=== PATIENT | female | born 1970 | race Caucasian/White ===

== ENCOUNTER 2020-10-27 11:51 | Inpatient (IN) | payer BC, SELFPAY ==
[2020-10-27] VITALS (21 sets, daily range): BP systolic 164–180; BP diastolic 84–93; PULSE 64–89; RESP 11–20; TEMP 36.7–37.2; O2SAT 97–100; BMI 33.2
--- NOTE | ~2020-10-27 | CT_ITS ---
EXAMINATION: CTA brain carotid EXAM DATE: 10/27/2020 13:18 INDICATION: Stroke, unable to walk. Left anterior cerebral artery distribution infarctions. TECHNIQUE: Spiral CTA of the carotid arteries was performed with intravenous injection 100 cc of Omn ipaque 350. Axial, coronal, sagittal reformatted images reviewed. Additional reformatted images crea hilaria on dedicated 3-D workstation. NASCET comparable standard used to assess the degree of arterial s tenosis. Spiral CT angiogram cerebral arteries performed with the same intravenous injection of cont rast. Source images of the brain CTA transferred to dedicated workstation for 3-D rotational image cr eation. Coronal, sagittal maximum intensity pixel images also reviewed. The dose-length product (DL P) for this examination was 1074.31 mGy-cm. The exposure was tailored according to patient size, an d iterative reconstruction (ASIR) was used as additional dose reduction technique. Correlation is mad e to noncontrast head CT earlier same date. FINDINGS: Minimal regions of carotid atherosclerosis, 0% carotid bulb stenosis bilaterally. The verte bral arteries are codominant. Mild right carotid siphon arterial sclerosis without stenosis. There is right-sided posterior communicating artery dominant posterior cerebral artery. There is approximately 6 mm length of the left A2 segment which is severely stenotic, between axial s equence 3 images 94 and 101. Uncertain whether or not this is from atherosclerosis or thrombus. Other [place] symmetric and unremarkable cerebral artery arborization. There is no carotid or vertebral basila r arterial dissection or fibromuscular dysplasia. There are no cerebral artery aneurysms. The sagitta l, transverse and sigmoid sinuses enhance normally, no venous sinus thrombosis. Internal cerebral vei ns also enhance normally. Left frontal lobe, anterior cerebral artery distribution acute or subacut e infarctions as described on noncontrast head CT prior to this. IMPRESSION: 1. Left A2 severe short segment narrowing, could be from thrombus or atherosclerosis. 2. Left IVONNE distribution infarctions. Reviewed, dictated and finalized at location A. IMPRESSION: 1. Left A2 severe short segment narrowing, could be from thrombus or atheroscl erosis. 2. Left IVONNE distribution infarctions.
--- NOTE | ~2020-10-27 | MR_ITS ---
EXAMINATION: MR brain/brain stem wo/w con DATE: 10/28/2020 10:52 INDICATION: Cerebral vascular accident. Right hemiparesis. TECHNIQUE: Magnetic resonance imaging (MRI) of the brain and brainstem was performed without and with 18 mL MultiHance intravenous contrast. Sequences included sagittal and axial T1-weighted FSE, axial diffusion-weighted FS EPI, axial T2*-weighted GRE, axial T2-weighted FLAIR Propeller, and axial T2-we ighted Propeller. Postcontrast sequences included axial and coronal T1-weighted FSE. Apparent diffusi on coefficient (ADC) maps were created. COMPARISON: Head CT 10/27/2020 FINDINGS: There are patchy acute infarcts in the medial left frontal lobe. There are scattered areas of nonspecific increased T2-weighted signal intensity in the cerebral white matter, which is within n ormal limits for the patient's age. There is no intracranial hemorrhage or abnormal mass lesion. The ventricles are normal in size. There is mucosal thickening in the paranasal sinuses. There is a trace left mastoid effusion. IMPRESSION: 1. Patchy acute infarcts in the medial left frontal lobe. Reviewed, dictated and finalized at location A.
--- NOTE | ~2020-10-27 | CT_ITS ---
EXAMINATION: CT cervical spine [facility] EXAM DATE: 10/27/2020 12:27 INDICATION: Neck pain and right sided weakness. TECHNIQUE: Spiral CT of the cervical spine was performed without contrast. Axial images were reviewe d. Coronal and sagittal reformatted images were also reviewed. The dose-length product (DLP) for thi s examination was 414.01 mGy-cm. The exposure was tailored according to patient size (auto mA exposu re control), and iterative reconstruction (ASIR) was used as additional dose reduction technique. [facility] is no prior study for comparison. FINDINGS: There are no acute fractures identified. The odontoid process is intact. The lateral mass es of C1 line up with C2. There is 3 mm anterolisthesis C4 on C5, 2 mm anterolisthesis C3 on C4. Mode rate to severe loss of the C5-6 and 6-7 disc height, mild to moderate disc disease at the other cervi unique levels. Level by level evaluation: C2-C3: Disc does not extend beyond the endplate margin. Uncovertebral joint arthropathy: Mild to moderate left, mild right. Facet joint arthropathy: Severe left, mild to moderate right. Neural foraminal stenosis: Moderate left. Central canal stenosis: No stenosis. C3-C4: There is a mild diffuse disc bulge. Uncovertebral joint arthropathy: Mild to moderate left, mild right. Facet joint arthropathy: Severe left, moderate right. Neural foraminal stenosis: Moderate to severe left, mild right. Central canal stenosis: No stenosis. C4-C5: There is a mild diffuse disc bulge. Uncovertebral joint arthropathy: Mild to moderate bilateral. Facet joint arthropathy: Moderate to severe bilateral. Neural foraminal stenosis: Mild to moderate bilateral. Central canal stenosis: Mild. C5-C6: There is a mild diffuse disc bulge. Uncovertebral joint arthropathy: Moderate bilateral. Facet joint arthropathy: Mild to moderate bilateral. Neural foraminal stenosis: Moderate bilateral. Central canal stenosis: Mild. C6-C7: There is a mild diffuse disc bulge. Uncovertebral joint arthropathy: Mild to moderate left, mild right. Facet joint arthropathy: Mild to moderate bilateral. Neural foraminal stenosis: Minimal left. Central canal stenosis: Mild. C7-T1: Disc does not extend beyond the endplate margin. Uncovertebral joint arthropathy: None. Facet joint arthropathy: Mild to moderate left, mild right. Neural foraminal stenosis: No stenosis. Central canal stenosis: No stenosis. IMPRESSION: 1. Cervical spondylosis with left C3-4 neural foramina most narrowed. 2. No acute findings. Reviewed, dictated and finalized at location A.
--- NOTE | ~2020-10-27 | CT_ITS ---
EXAMINATION: CT brain wo con EXAM DATE: 10/27/2020 12:27 INDICATION: Right-sided hemiparesis. Neck pain. TECHNIQUE: Spiral CT of the head was performed without contrast. Axial, coronal and sagittal images were reviewed. The dose-length product (DLP) for this examination was 529.67 mGy-cm. The exposure w as tailored according to patient size, and iterative reconstruction (ASIR) was used as additional dos e reduction technique. There is no prior study for comparison. FINDINGS: There is a low-density approximately 2 cm region in the left frontal lobe involving both gr ay and white matter, could be acute or subacute infarction. There is a smaller infarction in the left frontal lobe more medially. There is no acute intraparenchymal hemorrhage. No evidence of intrapare nchymal brain mass lesion. There is no mass effect or midline shift. The ventricles are normal in s ize. There are no extra-axial collections. There are no acute calvarial fractures. The orbits are u nremarkable. Soft tissue is unremarkable. Moderate to severe ethmoid and left maxillary sinus opaci ty. IMPRESSION: 1. At least 2 left anterior cerebral artery distribution infarctions likely acute or subacute. 2. Moderate to severe ethmoid and left maxillary sinus opacity. Reviewed, dictated and finalized at location A. IMPRESSION: 1. At least 2 left anterior cerebral artery distribution infarctions likely acu te or subacute. 2. Moderate to severe ethmoid and left maxillary sinus opacity.
--- NOTE | ~2020-10-27 | US_ITS ---
EXAMINATION: US carotid duplex BI DATE: 10/28/2020 11:20 INDICATION: CVA TECHNIQUE: Grayscale, color Doppler, and pulsed Doppler images of the cervical carotid arteries were obtained. The degree of vessel stenosis is placed in one of the following categories: normal, <50%, 5 0-69%, >=70% but less than near-occlusion, near-occlusion, or total occlusion. Note that percent sten osis relative to normal distal artery lumen diameter is indirectly measured from velocity measurement s as described by Joel, et al. Radiology 2003; 229:340-346. Notes: Normal: Peak systolic velocity <125 centimeters/sec and no plaque <50%. Peak systolic velocity <125 ( EDV <40; ICA/CCA PSV ratio <2.0; used these factors only a tandem lesions or low cardiac output or co ntralateral disease) 50-69 %: PSV 125-230 (EDV 40-100; ratio 2-4) >= 70% but less than near occlusion: PSV greater than 230 (EDV > 100; ratio> 4.0) Near Occlusion: PSV that is variable; markedly narrowed lumen Occlusion: Absent flow on color/spectral Doppler and no lumen on ruiz scale. COMPARISON: None. FINDINGS: RIGHT: The right common carotid artery (CCA) peak systolic velocity (PSV) is 96 cm/s. The right internal car otid artery (ICA) PSV is 53 cm/s. The right ICA end-diastolic velocity (EDV) is 17 cm/s. The right IC A/CCA PSV ratio is 0.6. The external carotid artery (ECA) PSV is 116 cm/s. There is antegrade flow in the right vertebral artery. LEFT: The left CCA PSV is 86 cm/s. The left ICA PSV is 68 cm/s. The left ICA EDV is 25 cm/s. The left ICA/C CA PSV ratio is 0.8. The ECA PSV is 120 cm/s. There is antegrade flow in the left vertebral artery. IMPRESSION: 1. Less than 50% stenosis in the right internal carotid artery by sonographic criteria. 2. Less than 50% stenosis in the left internal carotid artery by sonographic criteria. Reviewed, dictated and finalized at location B. IMPRESSION: 1. Less than 50% stenosis in the right internal carotid artery by sonographic sawyer osuna. 2. Less than 50% stenosis in the left internal carotid artery by sonographic evgeny huizar.
--- NOTE | 2020-10-27 11:57 | ED.NEUROSD ---
HPI - Neuro Symptoms/Deficit General Chief Complaint: Weakness Stated Complaint: R SIDED WEAKNESS,FACIAL DROOP X 3 DAYS Time Seen by Provider: 10/27/20 11:56 History of Present Illness HPI Narrative: 49 yo w/ h/o HTN presents to the ED for weakness. She has had weakness in the right leg and arm for the past 3 days. The weakness is worse in the leg. She has not been able to walk. She thought that it was due to sciatica. No aphasia, facial droop, headache. Related Data Home Medications Medication Instructions Recorded Confirmed baclofen 10 mg PO TID PRN 10/27/20 10/27/20 cefdinir 300 mg PO DAILY 10/27/20 10/27/20 fluticasone propionate 1 spray INTRANASAL DAILY PRN 10/27/20 10/27/20 losartan 100 mg PO DAILY 10/27/20 10/27/20 methylprednisolone 4 mg PO DAILY 10/27/20 10/27/20 Allergies Allergy/AdvReac Type Severity Reaction Status Date / Time fentanyl AdvReac Nausea and Verified 10/27/20 17:26 Vomiting Sulfa (Sulfonamide AdvReac Fever Verified 10/27/20 17:26 Antibiotics) Review of Systems Review of Systems: All systems reviewed & are unremarkable except as noted in HPI and below Constitutional: Constitutional: Denies chills, Denies fever(s) and Reports weakness Eyes: Eyes: Denies change in vision ENT: Reports system reviewed and no additional complaints, except as documented Cardiovascular: Cardiovascular: Denies chest pain Respiratory: Respiratory: Denies dyspnea Gastrointestinal: Gastrointestinal: Denies abdominal pain and Denies nausea Genitourinary: Genitourinary: Reports no additional female genitourinary complaints Musculoskeletal: Musculoskeletal: Reports back pain Neurologic: Denies dizziness, Reports focal weakness and Reports numbness PMFSH Past Medical History Medical History Chronic back pain Hypertension Tobacco abuse Surgical History Surgical History H/O nasal polypectomy H/O tubal ligation History of endometrial ablation History of tonsillectomy Family History Family History Father Pulmonary fibrosis Mother Breast cancer Alzheimer's dementia Social History Social History Social History: The patient is and she desires to have her is the surrogate decision maker. The patient desires to be a full code. She has 2 children. She is the homemaker. The patient smokes about a pack to pack and half a day. She does not use any alcohol but uses marijuana daily. No illicit drugs. Smoking packs per day: 1 Smoking cigarettes per day: 20.0 Years smoked: 36 Smoking pack-years: 36.00 Smoking status: Current every day smoker Tobacco type: cigarettes Alcohol intake: former Drinks per week: 14 Substance use type: marijuana Last use: 10/26/2020 Gender identity (if verbalized by the patient): Female Spiritual care concerns: Yes (Amish) Exam Const: General: healthy appearing, no acute distress and alert Orientation/consciousness: patient oriented x3 HENMT: Head: normal to inspection Neck: Neck: normal visual inspection and no lymphadenopathy Chest: Chest palpation & inspection: no tenderness Resp: Effort & Inspection: normal respiratory effort Auscultation: clear to auscultation bilaterally, no rales, no rhonchi and no wheezes Cardio: Jugular venous distension: no JVD Rate: regular rate Rhythm: regular rhythm Heart sounds: no murmurs GI: Inspection: non-distended GI Palp: Yes Soft to palpation and No Tenderness to palpation present (GI) Skin: General skin exam: normal color Neuro: General: patient oriented x3, moves all extremities and CN's II-XI intact bilaterally Cranial nerves: Yes Normal facial strength present, Yes facial symmetry and Yes Midline tongue present Speech: normal speech Gait
--- NOTE | 2020-10-27 12:08 | ECG_ITS ---
Measurements Intervals [place] Rate: 72 P: 40 AL: 112 QRS: 55 QRSD: 77 T: 63 QT: 382 QTc: 420 Interpretive Statements SINUS RHYTHM WITH SHORT AL INTERVAL BORDERLINE ST-T WAVE ABNORMALITY- ANTEROLAT/HIGH LAT LEADS BORDERLINE ECG Electronically Signed On 10-27-2020 13:35:12 CDT by Jorge Boston D.O.
[2020-10-27 12:44] LABS: Basophils Absolute Auto 0.1 K/mm3 (0.0-0.1); Basophils Percent Auto 0.6 % (0.2-1.2); Eosinophils Absolute Auto 0.2 K/mm3 (0-0.3); Eosinophils Percent Auto 1.7 % (0-4.4); Hematocrit 41.7 % (37.0-47.0); Hemoglobin 14.2 g/dL (12.0-15.0); Immature Granulocyte Absolute 0.04 K/mm3 (0.00-0.031); Immature Granulocyte Percent A 0.3 % (0-0.5); Lymphocytes Absolute Auto 4.48 K/mm3 (0.9-3.2); Mean Corpuscular HGB Conc 34.1 g/dl (32-36); Mean Corpuscular Hemoglobin 32.1 pg (26-34); Mean Corpuscular Volume 94.1 fl (80-100); Mean Platelet Volume 8.9 fl (7.4-10.4); Monocytes Percent Auto 8.6 % (2.6-8.5); Neutrophils Absolute Auto 5.7 K/mm3 (1.3-6.7); Neutrophils Percent Auto 49.8 % (45.5-73.1); Platelet Count Result 475 k/mm3 (150-375); Red Blood Count 4.43 M/mm3 (4.2-5.4); Red Cell Distribution Width 13.8 % (11.5-14.5); White Blood Count 11.5 K/mm3 (4.5-10.0)
[2020-10-27 12:53] LABS: INR 0.9; Prothrombin Time 12.7 Seconds (11.1-14.7)
[2020-10-27 12:54] LABS: Partial Thromboplastin Time 30.1 SECONDS (22.3-36.8)
[2020-10-27 13:03] LABS: Alanine Aminotransferase 20 U/L (4-35); Albumin Level 4.4 g/dL (3.5-5.1); Alkaline Phosphatase 131 U/L (38-126); Anion Gap 4 mmol/L (8-16); Aspartate Amino Transferase 34 U/L (14-36); Bilirubin,Total 0.5 mg/dL (0.2-1.3); Blood Urea Nitrogen 19 mg/dL (7-17); Calcium 9.7 mg/dL (8.4-10.2); Carbon Dioxide 28 mmol/L (22-30); Chloride 111 mmol/L (98-107); Estimated CRCL calculation 80 ml/min; Estimated Glomerular Filt Rate > 60; Glucose 101 mg/dL (65-105); Potassium 3.7 mmol/L (3.4-5.0); Sodium 143 mmol/L (137-145)
[2020-10-27 13:13] LABS: Troponin I < 0.012 ng/mL (0.000-0.034)
[2020-10-27] MEDS: ASPIRIN 81 MG CHEWABLE TABLET 324 MG PO (13:34)
--- NOTE | 2020-10-27 17:01 | PC.NURSE ---
This patient, Bijal Jimenez, was admitted to [facility] Surg Room 303-01 at 1656. Patient/family oriented to hospital policies and general routines including ID bracelet, bed and alarms, visiting hours, pain management, procedures, bathroom and other care routines, personal items, smoking policy, room service/diet, and visiting hours. Information on how to activate the Rapid Response Team has been discussed. Patient/Family are encouraged to report perceived risks to care and to ask questions if they do not understand what they are told or what they should do.
--- NOTE | 2020-10-27 19:43 | PM.IMHP ---
H&P: HPI History of Present Illness Date/Time: 10/27/20 19:43 this is a 49-year-old female patient who has a past medical history of hypertension. The patient stated she has not taken her blood pressure medication today. The patient stated that she has had some right-sided weakness for the last 3 days. She stated she did not have any facial drooping. She has not had any past history of any strokes. She has had no past history of any neurological problems. The patient does continue to smoke at least a pack to a pack and half a cigarettes per day. Was read by radiology as at least 2 left anterior cerebral artery distribution infarctions likely acute or subacute. Moderate to severe ethmoid and left maxillary sinus opacities. The patient is able to move her upper extremities but her right lower leg is extremely weak and she is not able to lift it on her own. She does have feeling and sensation to the right leg no facial droop. Was read as cervical spondylosis with left C3 to the for neural foramina most narrow old. No acute findings. Head neck CTA left A2 severe short segment narrowing could be from thrombosed or atherosclerosis. Left IVONNE distribution infarctions. A full-dose baby aspirin. Neurology has been consulted. The patient is being admitted to observation status on the date of service of 10/27/2020. Chief Complaint: Right-sided weakness Review of Systems Review of Systems: All systems reviewed & are unremarkable except as noted in HPI and below Constitutional: Constitutional: Reports as per HPI and Reports no additional constitutional complaints Eyes: Eyes: Reports as per HPI and Reports no additional eye complaints ENT: Reports system reviewed and no additional complaints, except as documented and Reports Normal hearing present Cardiovascular: Cardiovascular: Reports no additional cardiovascular complaints Respiratory: Respiratory: Reports no additional respiratory complaints and Reports no additional respiratory complaints Gastrointestinal: Gastrointestinal: Reports as per HPI and Reports no additional gastrointestinal complaints Musculoskeletal: Musculoskeletal: Reports no additional musculoskeletal complaints Integumentary/Breasts: Skin/Breast: Reports system reviewed and no additional complaints, except as docu and Reports as per HPI Neurologic: Reports system reviewed and no additional complaints, except as documented, Reports as per HPI and Reports Normal hearing present Psychiatric: Psychiatric: Reports no additional psychiatric complaints and Reports as per HPI Endocrine: Endocrine: Reports no additional endocrine complaints Hematologic/Lymphatic: Hematologic/Lymphatic: Reports no additional hematologic/lymphatic complaints Allergic/Immunologic: Allergic/Immunologic: Reports no additional allergic/immunologic complaints [facility] Past Medical History Medical History (Updated 10/27/20 @ 19:54 by Luly Marcos NP) Chronic back pain Hypertension Tobacco abuse Surgical History Surgical History (Updated 10/27/20 @ 19:51 by Luly Marcos NP) H/O nasal polypectomy H/O tubal ligation History of endometrial ablation History of tonsillectomy Family History Family History (Updated 10/27/20 @ 19:53 by Luly Marcos NP) Father Pulmonary fibrosis Mother Breast cancer Alzheimer's dementia Social History Social History (Updated 10/27/20 @ 19:53 by Luly Marcos NP) Social History: The patient is and she desires to have her is the surrogate decision maker. The patient desires to be a full code. She has 2 children. She is the homemaker. The patient smokes about a pack to pack and half a day. She does not use any alcohol but uses marijuana daily. No illicit drugs. Smoking packs per day: 1 Smoking cigarettes per day: 20.0 Years smoked: 36 Smoking pack-years: 36.00 Smoking status: Current every day smoker Tobacco type: cigarettes Alcohol intake: former
[2020-10-27] MEDS: LOSARTAN POTASSIUM 100 MG TABLET PO (20:13)
[2020-10-28] VITALS (10 sets, daily range): BP systolic 165–167; BP diastolic 78–84; PULSE 71–111; RESP 18–22; TEMP 36.7–37.1; O2SAT 96–98
--- NOTE | 2020-10-28 | ECHO_ITS ---
Patient Info Name: Bijal Jimenez Age: 49 years : 1970 Gender: Female Ht: 65 in Wt: 199 lbs BSA: 2.07 m2 HR: 77 bpm BP: 167 / 78 mmHg Heart Rhythm: Sinus Rhythm Technical Quality: Good Exam Date: 10/28/2020 11:43 AM Exam Location: 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 Strain analysis performed. Summary 1. Left ventricular systolic function is normal, estimated at 65-70%. 2. There is mildly increased left ventricular wall thickness. 3. The left ventricular diastolic function is grade II diastolic dysfunction. 4. Global longitudinal strain is mildly elevated at -16 %. 5. There is no aortic valve stenosis. 6. There is trace mitral valve regurgitation. 7. There is trace tricuspid valve regurgitation. 8. Unable to estimate PA systolic pressure due to poor spectral resolution of tricuspid regurgitant jet velocity. 9. No evidence for intracardiac shunt at the atrial level upon injection of agitated saline with or without Valsalva. Recommendations * Recommend transesophageal echocardiogram. Left Ventricle Left ventricular chamber dimension is normal. Left ventricular systolic function is normal, estimated at 65-70%. There is mildly increased left ventricular wall thickness. The left ventricular diastolic function is grade II diastolic dysfunction. Global longitudinal strain is mildly elevated at -16 %. Right Ventricle Right ventricular chamber dimension is normal. Right ventricular systolic function is normal. Left Atria Left atrial chamber dimension is normal. Right Atria Right atrial chamber dimension is normal. Aortic Valve The aortic valve is not well visualized. There is no aortic valve stenosis. There is no aortic valve regurgitation. Pulmonic Valve The pulmonic valve is not well visualized. Mitral Valve The mitral valve has normal leaflets. There is trace mitral valve regurgitation. Tricuspid Valve The tricuspid valve leaflets are normal. There is trace tricuspid valve regurgitation. Unable to estimate PA systolic pressure due to poor spectral resolution of tricuspid regurgitant jet velocity. Pericardium/Pleural The pericardium appears normal. There is a small pericardial effusion. Inferior Vena Cava Normal inferior vena cava with >50% collapse upon inspiration consistent with normal right atrial pressure, 5 mmHg. Aorta The aortic root size at the sinus of Valsalva is normal. Left Ventricular Outflow Tract Name Value Normal LVOT 2D LVOT Diameter 2.0 cm LVOT Doppler LVOT Peak Gradient
[2020-10-28 06:09] LABS: Basophils Absolute Auto 0.1 K/mm3 (0.0-0.1); Basophils Percent Auto 0.6 % (0.2-1.2); Eosinophils Absolute Auto 0.2 K/mm3 (0-0.3); Eosinophils Percent Auto 1.2 % (0-4.4); Hematocrit 42.2 % (37.0-47.0); Hemoglobin 14.3 g/dL (12.0-15.0); Immature Granulocyte Absolute 0.04 K/mm3 (0.00-0.031); Immature Granulocyte Percent A 0.3 % (0-0.5); Lymphocytes Absolute Auto 7.09 K/mm3 (0.9-3.2); Lymphocytes Percent Auto 49.3 % (18.3-44.2); Mean Corpuscular HGB Conc 33.9 g/dl (32-36); Mean Corpuscular Hemoglobin 31.9 pg (26-34); Mean Corpuscular Volume 94.2 fl (80-100); Mean Platelet Volume 9.2 fl (7.4-10.4); Monocytes Absolute Auto 1.3 K/mm3 (0.1-0.6); Monocytes Percent Auto 8.7 % (2.6-8.5); Neutrophils Absolute Auto 5.7 K/mm3 (1.3-6.7); Neutrophils Percent Auto 39.9 % (45.5-73.1); Platelet Count Result 464 k/mm3 (150-375); Red Blood Count 4.48 M/mm3 (4.2-5.4); Red Cell Distribution Width 13.7 % (11.5-14.5); White Blood Count 14.4 K/mm3 (4.5-10.0)
[2020-10-28 06:20] LABS: Alanine Aminotransferase 21 U/L (4-35); Albumin Level 4.3 g/dL (3.5-5.1); Alkaline Phosphatase 127 U/L (38-126); Anion Gap 7 mmol/L (8-16); Aspartate Amino Transferase 31 U/L (14-36); Bilirubin,Total 0.8 mg/dL (0.2-1.3); Blood Urea Nitrogen 18 mg/dL (7-17); Calcium 9.7 mg/dL (8.4-10.2); Carbon Dioxide 28 mmol/L (22-30); Chloride 108 mmol/L (98-107); Cholesterol 180 mg/dL (0-200); Estimated CRCL calculation 91 ml/min; Estimated Glomerular Filt Rate > 60; Glucose 98 mg/dL (65-105); HDL Direct 54 mg/dL; Magnesium 2.1 mg/dL (1.6-2.3); Potassium 3.5 mmol/L (3.4-5.0); Sodium 143 mmol/L (137-145); Triglycerides 79 mg/dL (<150)
[2020-10-28 06:31] LABS: LDL Cholesterol Direct 95 mg/dL
[2020-10-28] MEDS: ASPIRIN 325 MG ENTERIC TABLET PO (08:17)
[2020-10-28] MEDS: LOSARTAN POTASSIUM 100 MG TABLET PO (08:17)
--- NOTE | 2020-10-28 10:51 | WPDNEURCNPN ---
Assessment and Plan Assessment and plan (1) Acute ischemic left IVONNE stroke: Code(s): I63.522 - Cerebral infarction due to unspecified occlusion or stenosis of left anterior cerebral artery Status: Acute Additional Plan left hemispheric stroke with more involvement of the right lower extremity, with increased tone, increased reflexes ,upgoing plantar response and documented MRI with patchy acute infarct in the medial left frontal lobe, patient will be started on aspirin and Plavix and cardiac workup will be carried out as well Consult date: 10/28/20 Time Seen: 11:30 HPI: Bijal Jimenez is a 49 year old female Has been admitted to the hospital for the hypertension and with history of not taking the medication at the same time she noted to have the right-sided weakness of 72 hours duration she has no history of strokes in the past he was able to move her upper extremities but had difficulties moving the right lower extremity when she came in though she had no facial droop head neck CTA revealed severe short segment narrowing could be from thrombosed or atherosclerosis and also left IVONNE distribution infarction patient was started on aspirin her other history is consistent with chronic back pain, hypertension, tobacco abuse, and current everyday smoker Review of Systems Review of Systems: All systems reviewed & are unremarkable except as noted in HPI and below PMFSH Past Medical History Medical History Chronic back pain Hypertension Tobacco abuse Surgical History Surgical History H/O nasal polypectomy H/O tubal ligation History of endometrial ablation History of tonsillectomy Family History Family History Father Pulmonary fibrosis Mother Breast cancer Alzheimer's dementia Social History Social History Social History: The patient is and she desires to have her is the surrogate decision maker. The patient desires to be a full code. She has 2 children. She is the homemaker. The patient smokes about a pack to pack and half a day. She does not use any alcohol but uses marijuana daily. No illicit drugs. Smoking packs per day: 1 Smoking cigarettes per day: 20.0 Years smoked: 36 Smoking pack-years: 36.00 Smoking status: Current every day smoker Tobacco type: cigarettes Alcohol intake: former Drinks per week: 14 Substance use type: marijuana Last use: 10/26/2020 Gender identity (if verbalized by the patient): Female Spiritual care concerns: Yes (Muslim) Meds Home Medications and Allergies Home Medications Medication Instructions Recorded Confirmed Type baclofen 10 mg PO TID PRN 10/27/20 10/27/20 History cefdinir 300 mg PO DAILY 10/27/20 10/27/20 History fluticasone propionate 1 spray INTRANASAL DAILY PRN 10/27/20 10/27/20 History losartan 100 mg PO DAILY 10/27/20 10/27/20 History methylprednisolone 4 mg PO DAILY 10/27/20 10/27/20 History cetirizine-pseudoephedrine 1 tablet PO BID 10/28/20 10/28/20 History [Zyrtec-D] Allergies Allergy/AdvReac Type Severity Reaction Status Date / Time fentanyl AdvReac Nausea and Verified 10/27/20 17:26 Vomiting Sulfa (Sulfonamide AdvReac Fever Verified 10/27/20 17:26 Antibiotics) Vital Signs Vital Signs - 24 hr 10/27/20 11:56 10/27/20 12:07 10/27/20 12:15 Temperature 36.7 C Pulse Rate 71 77 69 Respiratory Rate 18 11 L 17 Blood Pressure Pulse Oximetry 100 98 10/27/20 12:30 10/27/20 12:45 10/27/20 13:37 Temperature Pulse Rate 77 74 77 Respiratory Rate 19 12 17 Blood Pressure Pulse Oximetry 100 100 100 10/27/20 13:45 10/27/20 14:00 10/27/20 14:26 Temperature Pulse Rate 64 69 67 Respiratory Rate 18 17 17 Blood Pressure 164/91 H Pulse Oximetry 100 100 98 10/27/20 14:3
[2020-10-28] MEDS: BACLOFEN 10 MG TABLET PO ×2 (12:04→20:30)
--- NOTE | 2020-10-28 14:08 | PM.IMPN ---
Progress Note: A&P Assessment and Plan (1) CVA (cerebral vascular accident): Code(s): I63.9 - Cerebral infarction, unspecified Status: Acute Assessment and Plan: CTA consistent with left IVONNE stroke with a thrombus in the A2 segment -will start aspirin 81 mg, Plavix and atorvastatin -spoke with [facility] who recommends cardiac work up with TTE and if negative proceed with BERE. He also recommends holter monitor -Pt plans to quit smoking -neurology has been consulted (2) Hypertension: Code(s): I10 - Essential (primary) hypertension Status: Chronic Assessment and Plan: last glucose 167/78 -plan for permissive hypertension throughout today, may consider adjusting blood pressure medications starting tomorrow (3) Chronic back pain: Code(s): M54.9 - Dorsalgia, unspecified; G89.29 - Other chronic pain Status: Chronic Assessment and Plan: Chronic, no acute issues -patient utilizes marijuana as well as baclofen (4) Jenni-menopausal: Code(s): N95.1 - Menopausal and female climacteric states Status: Acute Assessment and Plan: Not on any estrogen therapy (5) Tobacco abuse: Code(s): Z72.0 - Tobacco use Status: Chronic Assessment and Plan: Educated the patient for greater than 5 minutes about different routes of smoking cessation. She prefers to do this on her own Time Spent With Patient Time with patient: 25 - 35 minutes Subjective Date/time seen: 10/28/20 14:08 Interval history: Pt is a 49-year-old female here for acute CVA. Patient was seen today and states she feels little bit better. Her right arm is almost back to normal but she is still unable to lift the right leg off the bed. She has no change in vision, speech, swallowing or left-sided issues. She is barely able to walk due to the flaccid Dorene her right leg. She says she is going to quit smoking. She does not use any type of estrogen, drugs or have any history of blood clots. She has no family history of blood clots but thinks her dad was on a blood thinner due to a heart condition. Review of Systems Review of Systems: All systems reviewed & are unremarkable except as noted in HPI and below Exam Narrative: Exam Narrative: General: Well developed well nourished patient in NAD HEENT: normocephalic Neck: supple Neuro: Alert and oriented x4. Cranial nerves 2-12 intact. Equal strength in the upper extremities. She had normal strength in the left leg but right leg showed no movement against gravity. She was unable to dorsiflex or plantar flex. Reflexes were intact. Dull and sharp sensation intact bilaterally. CV:RRR on exam. Telemetry shows no signs of cardiac arrhythmias Resp:CTA Abd: Soft, non distended. No pain to palpation. Positive bowel sounds Extremities: No swelling, erythema, or pain to palpation. Objective Data Vital Signs Vital Signs: Vital Signs - 24 hr 10/27/20 14:26 10/27/20 14:30 10/27/20 15:00 Temperature Pulse Rate 67 69 74 Respiratory Rate 17 17 14 Blood Pressure Pulse Oximetry 98 99 99 10/27/20 15:01 10/27/20 15:31 10/27/20 15:32 Temperature Pulse Rate 73 73 68 Respiratory Rate 15 17 17 Blood Pressure 176/85 H 170/84 H Pulse Oximetry 98 98 97 10/27/20 15:45 10/27/20 15:46 10/27/20 16:00 Temperature Pulse Rate 79 78 89 Respiratory Rate 17 16 17 Blood Pressure 167/85 H Pulse Oximetry 98 97 10/27/20 16:47 10/27/20 16:55 10/27/20 20:00 Temperature 98.0 F Pulse Rate 69 83 73 Respiratory Rate 20 20 Blood Pressure 164/91 H 180/93 H Pulse Oximetry 99 99 10/27/20 21:39 10/28/20 00:00 10/28/20 04:00 Temperature 98.9 F Pulse Rate 84 71 74 Respiratory Rate 18 Blood Pressure 165/87 H Pulse Oximetry 97 10/28/20 05:49 10/28/20 08:00 10/28/20 09:53 Temperature 98.0 F Pulse Rate 77 97 Respiratory Rate 18 Blood Pressure 167/78 H Pulse Oximetry 9
--- NOTE | 2020-10-28 15:39 | PM.CNCAR ---
Assessment and Plan Assessment and plan (1) Acute ischemic left IVONNE stroke: Code(s): I63.522 - Cerebral infarction due to unspecified occlusion or stenosis of left anterior cerebral artery Status: Acute Assessment and Plan: given distribution for acute infarcts and patchy distribution greater concern for cardioembolic phenomena. No evidence of atrial fibrillation and atrial flutter to date or prior history or symptoms highly suggestive. - no evidence of intracardiac shunt on surface echocardiogram. We discussed at length risks, benefits and alternatives with transesophageal echocardiogram limitations and potential change in management depending on findings. If intracardiac thrombus is noted on transesophageal echocardiogram systemic anticoagulation be recommended to be initiated at the appropriate time. Furthermore, 30 day security monitor should be obtained regardless of findings on an outpatient basis to assess for atrial fibrillation and/or atrial flutter. Risks with BERE including anesthesia, aspiration discussed. She has no c/o dysphagia or swallowing. - Appreciate Neurology involvement and recommendations. - PT/OT - DVT prophylaxis - Patient is currently on dual antiplatelet therapy with aspirin and clopidogrel. Continue statin. Aggressive risk modification and lifestyle changes have been discussed. Immediate and absolute smoking cessation strongly advised along with blood pressure control. - Explained the greater likelihood transesophageal echocardiogram will not change our management. There is no clinical suspicion for endocarditis. If PFO is identified on bubble study with transesophageal echocardiogram discussed potential referral my colleagues at [facility] [facility] for consideration of PFO closure. - All questions answered to the patient and her 's satisfaction. She agrees to proceed with transesophageal echocardiogram tomorrow. - NPO after midnight for BERE tomorrow morning. - Further recommendations to follow post BERE. If BERE does not reveal intracardiac thrombus or shunt, continue with current management with outpatient 30 day security monitor. We discussed risk vs benefit balance at length. I also explained how there is much greater likelihood BERE will not alter our management. I set expectations for the likely limited information this study will bring and potential for significant alteration in management if thrombus identified. Nonetheless, if thrombus is identified further pursuit for AFib/flutter of paramount importance. Not discussed, but loop recorder implantation may be required in the near future if security monitor unrevealing for further confirmation (2) Hypertension: Code(s): I10 - Essential (primary) hypertension Status: Chronic Assessment and Plan: Remains hypertensive, not ideally controlled. Judicious blood pressure control given recent acute CVA. (3) Tobacco abuse: Code(s): Z72.0 - Tobacco use Status: Chronic Assessment and Plan: Immediate and absolute smoking cessation counseling performed. Patient verbalized understanding and states she has already quit. Explained the absolute importance of smoking cessation (including MJ) for CVA risk reduction. History of Present Illness History of Present Illness Consult date/time: Date of service:10/28/20 15:39 Cardiology consultation at the request of Brigitte Estrada of the [facility] service for opinion regarding transesophageal echocardiogram for acute stroke. Requesting physician: Brigitte Estrada PA-C Consult reason: Other ( stroke, transesophageal echocardiogram) Reason For Visit: Acute ischemic stroke Narrative: Patient is a pleasant 49-year-old female with a past medical history significant for hypertension, tobacco and marijuana use who presented 10/27/2020 with complaints of 3 days right lower extremity weakness predominantly also involving right upper extremity and associated la
[2020-10-29] VITALS (10 sets, daily range): BP systolic 123–160; BP diastolic 81–106; PULSE 69–128; RESP 11–30; TEMP 36.9; O2SAT 96–100
[2020-10-29 06:36] LABS: Basophils Absolute Auto 0.1 K/mm3 (0.0-0.1); Basophils Percent Auto 0.5 % (0.2-1.2); Eosinophils Absolute Auto 0.2 K/mm3 (0-0.3); Eosinophils Percent Auto 1.5 % (0-4.4); Hematocrit 42.2 % (37.0-47.0); Hemoglobin 14.4 g/dL (12.0-15.0); Immature Granulocyte Absolute 0.04 K/mm3 (0.00-0.031); Immature Granulocyte Percent A 0.3 % (0-0.5); Lymphocytes Absolute Auto 5.84 K/mm3 (0.9-3.2); Lymphocytes Percent Auto 48.1 % (18.3-44.2); Mean Corpuscular HGB Conc 34.1 g/dl (32-36); Mean Corpuscular Hemoglobin 31.2 pg (26-34); Mean Corpuscular Volume 91.5 fl (80-100); Mean Platelet Volume 9.3 fl (7.4-10.4); Monocytes Absolute Auto 1.2 K/mm3 (0.1-0.6); Monocytes Percent Auto 9.5 % (2.6-8.5); Neutrophils Absolute Auto 4.9 K/mm3 (1.3-6.7); Neutrophils Percent Auto 40.1 % (45.5-73.1); Platelet Count Result 484 k/mm3 (150-375); Red Blood Count 4.61 M/mm3 (4.2-5.4); Red Cell Distribution Width 13.3 % (11.5-14.5); White Blood Count 12.1 K/mm3 (4.5-10.0)
[2020-10-29] MEDS: ASPIRIN 81 MG ENTERIC TABLET PO (08:25)
[2020-10-29] MEDS: CLOPIDOGREL BISULFATE 75 MG TABLET PO (08:25)
[2020-10-29] MEDS: LOSARTAN POTASSIUM 100 MG TABLET PO (08:25)
[2020-10-29] MEDS: ATORVASTATIN 20 MG TABLET PO (08:25)
--- NOTE | 2020-10-29 09:40 | WPDANESEPPF ---
Anes - Initial Pre Proc Eval Procedure: Operation Date: 10/29/20 10:00 Proposed Procedures p Trans Esophageal Echo - Bao Chavez MD Date/Time: 10/29/20 09:40 Surgeon: Brigitte Estrada PA-C Pre Op Diagnosis: Acute ischemic stroke Patient Data Age: 49 Gender: F Height: 5 ft 5 in Weight: 90.6 kg Last Vital Signs Temp 98.4 F 10/29/20 05:25 Pulse 99 10/29/20 05:25 Resp 18 10/29/20 05:25 BP 160/81 H 10/29/20 05:25 Pulse Ox 96 10/29/20 05:25 Allergies Allergy/AdvReac Type Severity Reaction Status Date / Time fentanyl AdvReac Nausea and Verified 10/27/20 17:26 Vomiting Sulfa (Sulfonamide AdvReac Fever Verified 10/27/20 17:26 Antibiotics) Home Medications Medication Instructions Recorded Confirmed Type baclofen 10 mg PO TID PRN 10/27/20 10/27/20 History cefdinir 300 mg PO DAILY 10/27/20 10/27/20 History fluticasone propionate 1 spray INTRANASAL DAILY PRN 10/27/20 10/27/20 History losartan 100 mg PO DAILY 10/27/20 10/27/20 History methylprednisolone 4 mg PO DAILY 10/27/20 10/27/20 History cetirizine-pseudoephedrine 1 tablet PO BID 10/28/20 10/28/20 History [Zyrtec-D] Laboratory Tests 10/29/20 05:48 WBC 12.1 K/mm3 H K/mm3 (4.5-10.0) RBC 4.61 M/mm3 M/mm3 (4.2-5.4) Hgb 14.4 g/dL g/dL (12.0-15.0) Hct 42.2 % % (37.0-47.0) MCV 91.5 fl fl (80-100) MCH 31.2 pg pg (26-34) MCHC 34.1 g/dl g/dl (32-36) RDW 13.3 % % (11.5-14.5) Plt Count 484 k/mm3 H k/mm3 (150-375) MPV 9.3 fl fl (7.4-10.4) Immature Gran % (Auto) 0.3 % % (0-0.5) Neut % (Auto) 40.1 % L % (45.5-73.1) Lymph % (Auto) 48.1 % H % (18.3-44.2) Roosevelt % (Auto) 9.5 % H % (2.6-8.5) Eos % (Auto) 1.5 % % (0-4.4) Baso % (Auto) 0.5 % % (0.2-1.2) Lymph # (Auto) 5.84 K/mm3 H K/mm3 (0.9-3.2) Roosevelt # (Auto) 1.2 K/mm3 H K/mm3 (0.1-0.6) Eos # (Auto) 0.2 K/mm3 K/mm3 (0-0.3) Baso # (Auto) 0.1 K/mm3 K/mm3 (0.0-0.1) Abs Immat Gran (auto) 0.04 K/mm3 H K/mm3 (0.00-0.031) Absolute Neuts (auto) 4.9 K/mm3 K/mm3 (1.3-6.7) Absolute Nucleated RBC 0.0 K/mm3 K/mm3 (0.0-0.012) Nucleated RBC % 0.0 % % (0.0-0.2) Patient hx anesthesia problems: none Family hx anesthesia problems: none [facility] Past Medical History Medical History (Updated 10/29/20 @ 09:41 by Chino Morris MD) Chronic back pain CVA (cerebral vascular accident) may be cardioembolic in nature; thus BERE Hypertension Tobacco abuse Surgical History Surgical History H/O nasal polypectomy H/O tubal ligation History of endometrial ablation History of tonsillectomy Family History Family History Father Pulmonary fibrosis Mother Breast cancer Alzheimer's dementia Social History Social History Social History: The patient is and she desires to have her is the surrogate decision maker. The patient desires to be a full code. She has 2 children. She is the homemaker. The patient smokes about a pack to pack and half a day. She does not use any alcohol but uses marijuana daily. No illicit drugs. Smoking packs per day: 1 Smoking cigarettes per day: 20.0 Years smoked: 36 Smoking pack-years: 36.00 Smoking status: Current every day smoker Tobacco type: cigarettes Alcohol intake: former Drinks per week: 14 Substance use type: marijuana Last use: 10/26/2020 Gender identity (if verbalized by the patient): Female Spiritual care concerns: Yes (Worship) Anes - Regla Final PreProcedure Day of Procedure 10/29/20 09:40 Patient weight: obese Heart: regular rate and rhythm Lungs: clear to auscultation Airway: Mallampati scale class III Neurological: alert and oriented Last oral intake: >/= 8 hours ASA classification: IV
--- NOTE | 2020-10-29 10:42 | WPDTEECHO ---
BERE TransEsophageal Echocardiogram Date of procedure: 10/29/20 Procedure Type: Transesophageal echocardiogram Diagnosis: Embolic stroke Indications: Embolic stroke Image Quality: Good Findings: Brief history present illness: Patient is a pleasant 49-year-old female with a past medical history significant tobacco abuse and hypertension presenting with 3 days right-sided weakness especially right lying found have acute stroke in IVONNE distribution with more than one infarct prompting concern for cardioembolic source referred for transesophageal echocardiogram. Procedure in detail: After verbal and written informed consent was obtained the patient risks, benefits, and alternatives explained in detail the patient agreed to proceed with the plan of care as outlined above. The patient was evaluated at bedside in the [facility] procedure room. The posterior oropharynx, neck, and jaw angle all within normal limits on examination. Lungs were clear to auscultation. See pre-sedation note for further details The patient was then placed in the appropriate 30 to 45 degree angle supine position at a slight left lateral decubitus position. Patient was monitored throughout the study with telemetry, oxygen saturation, end-tidal CO2 monitoring, blood pressure, heart rate, and respirations. The posterior hypopharynx was then locally anesthetized using repeated administration of Hurricaine spray as well as gargled viscous lidocaine. After local anesthetic of the posterior hypopharynx was achieved and the oral bite block placed, moderate sedation was administered. After confirmation of adequate moderate sedation, the transesophageal echocardiogram probe was advanced through the oral bite block into the posterior hypopharynx and into the esophagus easily and without complication. Multiple, multiplanar echocardiographic images were obtained in multiple standard re- projections. Pulsed wave, continuous-wave, and color-flow Doppler were utilized in conjunction with this study. At the conclusion of the study, the transesophageal echocardiogram probe was removed easily and without complication. The patient tolerated the procedure well without difficulty. Patient was in sinus rhythm throughout the study. Moderate Sedation/Anesthesia administration: Patient reports no prior problems with sedation/anesthesia although an intolerance to Fentanyl. Please see Anesthesiology documentation for sedation protocol and details throughout the procedure. FINDINGS: LEFT VENTRICLE: Size and systolic function were normal without wall motion abnormalities with ejection fraction of 70%. Mild concentric left ventricular hypertrophy. RIGHT VENTRICLE: Size and systolic function were normal. LEFT ATRIUM: Normal size. RIGHT ATRIUM: Normal size. INTERATRIAL SEPTUM: Interatrial septum is anatomically normal without evidence of shunt with color-flow Doppler nor with injection of agitated saline with and without Valsalva. Of note, there is severe focal lipomatosis hypertrophy of the interatrial septum in proximity to the SVC measuring 2.1cmx3.1cm. MITRAL VALVE: Mitral valve is mildly thickened, otherwise anatomically normal with preserved leaflet excursion and trivial regurgitation. No mobile elements identified. AORTIC VALVE: The aortic valve was an anatomically normal 3 leaflet structure with normal leaflet excursion and no regurgitation. TRICUSPID VALVE: The tricuspid valve is anatomically normal with normal leaflet excursion with trivial regurgitation. No mobile elements identified. PULMONIC VALVE: Pulmonic valve was anatomically normal with trivial regurgitation.. LEFT ATRIAL APPENDAGE: Anatomically normal structure with prominent pectinate muscles without thrombus or vegetation identified. Left atrial appendage velocities averaged approximately 60-70 centimeters/second. LEFT UPPER PULMONARY VEIN: Left upper pulmonary venous flow consistent with sinus rhythm and wit
--- NOTE | 2020-10-29 11:14 | PCOTNOTE ---
Attempted to see patient at this time, however patient just getting back from testing.
--- NOTE | 2020-10-29 11:52 | PM.DS ---
DS: Admitting Diagnosis Admitting Diagnosis Admitting Diagnosis: CVA DS: Discharge Diagnosis Discharge Diagnosis (1) CVA (cerebral vascular accident): Code(s): I63.9 - Cerebral infarction, unspecified Status: Inactive Assessment and Plan: CTA consistent with left IVONNE stroke with a thrombus in the A2 segment -will start aspirin 81 mg, Plavix and atorvastatin -spoke with [facility] who recommends desk monitor, placed at discharge -Pt plans to quit smoking -neurology has been consulted and is going to follow-up with them in 6 weeks -BERE did not show any cause for stroke (2) Hypertension: Code(s): I10 - Essential (primary) hypertension Status: Chronic Assessment and Plan: last blood pressure 148/101 after procedure. -patient started on amlodipine at discharge for persistently elevated blood pressures. She is to continue her home losartan (3) Chronic back pain: Code(s): M54.9 - Dorsalgia, unspecified; G89.29 - Other chronic pain Status: Chronic Assessment and Plan: Chronic, no acute issues -patient utilizes marijuana as well as baclofen (4) Jenni-menopausal: Code(s): N95.1 - Menopausal and female climacteric states Status: Acute Assessment and Plan: Not on any estrogen therapy (5) Tobacco abuse: Code(s): Z72.0 - Tobacco use Status: Chronic Assessment and Plan: Educated the patient for greater than 5 minutes about different routes of smoking cessation. She prefers to do this on her own DS: Summary Hospital Course Hospital Course: Patient is a 49-year-old female with a history of hypertension who smokes cigarettes daily who presented emergency room on 10/27/20 for weakness in the right leg and arm the last 3 days. Vitals in the ER were temperature 36.7? C, pulse 71, respiratory rate 18, pulse ox 100 on room air. White blood cell count 11.5, hemoglobin 14.2, hematocrit 41.7, platelets 475. BMP relatively within normal limits. Initial head CT showed at least to left anterior cerebral artery distribution infarcts likely acute or subacute with moderate to severe ethmoid and left maxillary sinus opacity. C-spine showed cervical spondylosis with left C3-C4 neural foramina most narrowed. CTA showed left A2 severe short-segment narrowing likely thrombus. Left IVONNE distribution infarct. Patient was admitted to the hospital service and started on aspirin and Plavix as well as atorvastatin. She underwent a BERE which did not show any etiology for the stroke. Inpatient telemetry monitoring did not reveal any arrhythmias. She is not on hormone replacement therapy for has a history of clotting disorder. Spoke with [facility] who recommended outpatient tele monitor and cessation of smoking. The patient's deficits did improve mildly but she had the most deficits in her right leg. She was insistent on outpatient therapy which is appropriate for this patient. Overall, the patient was doing better and is going to follow-up with her primary care physician. She was educated about the worrisome signs and symptoms come back to emergency room for was discharged in stable condition. Status at Discharge Functional status at discharge: independent ambulation Overall status at discharge: patient is progressing back to baseline Time Spent with Patient Time attestation: Total time spent providing and/or coordinating discharge services:38 min Time spent: Greater than 30 minutes Exam Narrative: Exam Narrative: General: Well developed well nourished patient in NAD HEENT: normocephalic Neck: supple Neuro: Alert and oriented x4. Cranial nerves 2-12 intact. Equal strength in the upper extremities. She had normal strength in the left leg and the right leg showed improvement this morning as she was able to somewhat lift it off the bed. She was unable to dorsiflex or plantar flex. Reflexes were intact. Dull and sharp sensation intact
--- NOTE | 2020-10-29 12:21 | WPDNEUROPN ---
Progress Note: A&P Additional Plan being discharged today, received a prescription for the walker, and also will receive the rehab therapy as an outpatient, the addition to medication as such that is aspirin and Plavix and follow up by the physician Review of Systems Review of Systems: All systems reviewed & are unremarkable except as noted in HPI and below Exam Const: General: cooperative, comfortable, alert, awake, in distress and anxious Nutritional Appearance: average body habitus and overweight Orientation/consciousness: oriented to person, oriented to place and oriented to time Limitations: physical limitations HENMT: Head: normocephalic Ears: hearing grossly normal bilaterally General nose exam: Normal external nose present Face and sinus: normal facial exam Mouth: Yes Normal oral and palatal mucosa present Eyes: General: appearance normal, both eyes and all related structures Visual Rowe: normal visual rowe by confrontation Alignment and Position: alignment normal Periorbital: periorbital findings normal Eyelids: eyelids normal Conjunctivae: conjunctivae normal Sclera: sclerae normal Cornea: corneas normal Pupils: Equal, round and reactive pupils present Neck: Neck: full ROM Neuro: General: patient oriented x3 Cranial nerves: Yes CN's II-XII intact bilaterally Cognition (Neuro): normal cognition Gait exam (Neuro): Wide-based gait present Motor exam (neuro): Abnormal motor strength present ( right lower extremity weakness with increased tone) Psych: Appearance: grossly normal Speech and movement: Restless speech present Affect: Labile affect present and Anxious affect present Attitude: cooperative Thought process: Normal thought process present Thought content: Yes Normal thought content present Insight: Good insight present (Psych) Judgement: Good judgement present (Psych) Objective Data Vital Signs Vital Signs: Vital Signs - 24 hr 10/28/20 14:00 10/28/20 16:00 10/28/20 20:00 Temperature 36.7 C Pulse Rate 83 72 111 H Respiratory Rate 22 H Blood Pressure 167/82 H Pulse Oximetry 96 10/28/20 22:00 10/29/20 00:00 10/29/20 04:00 Temperature 37.1 C Pulse Rate 88 77 69 Respiratory Rate 18 Blood Pressure 165/84 H Pulse Oximetry 97 10/29/20 05:25 10/29/20 08:00 10/29/20 10:38 Temperature 36.9 C Pulse Rate 99 83 116 H Respiratory Rate 18 11 L Blood Pressure 160/81 H 124/90 Pulse Oximetry 96 96 10/29/20 10:40 10/29/20 10:45 10/29/20 10:55 Temperature Pulse Rate 128 H 120 H 105 H Respiratory Rate 30 H 20 21 H Blood Pressure 143/102 H 123/86 142/106 H Pulse Oximetry 99 98 100 10/29/20 11:08 Temperature Pulse Rate 96 Respiratory Rate 20 Blood Pressure 148/101 H Pulse Oximetry 99 Intake/Output Intake/Output: Intake & Output 10/26/20 10/27/20 10/28/20 10/29/20 23:59 23:59 23:59 23:59 Intake Total 490 2710 370 Output Total 1350 1000 Balance 490 1360 -630 Meds/Results Medications: Active Medications Generic Name Dose Route Start Last Admin Trade Name Freq PRN Reason Stop Dose Admin Aspirin 81 mg 10/29/20 09:00 10/29/20 08:25 Aspirin 81 Mg Enteric Tablet PO 81 mg QAM SHIRA Administration Atorvastatin Calcium 20 mg 10/29/20 09:00 10/29/20 08:25 Atorvastatin 20 Mg Tablet PO 20 mg DAILY SHIRA Administration Baclofen 10 mg 10/27/20 19:31 10/28/20 20:30 Baclofen 10 Mg Tablet PO 10 mg TID PRN Administration Bone Disease/Protruding Disc Clopidogrel Bisulfate 75 mg 10/29/20 09:00 10/29/20 08:25 Clopidogrel Bisulfate 75 Mg Tablet PO 75 mg QAM SHIRA Administration Hydralazine HCl 10 mg 10/27/20 19:58 Hydralazine Hcl 20 Mg/Ml Vial IV PUSH Q8H PRN Blood Pressure - High Losartan Potassium 100 mg 10/27/20 19:40 10/29/20 08:25 Losartan Potassium 100 Mg Tablet PO 100 mg DAILY SHIRA Administration Radiology Results: ITS Impressions Head CT 10/27/20 12:31 IMPRESSION
== END 2020-10-29 13:44 | disposition home or self-care (01) | DRG 45 ==
LOC: ANHED 12:48 → ANH3MEDSUR 16:22
PROVIDERS: Internal Medicine Cardiovascular Disease; Nurse Practitioner; Physician Assistant; Admitting Provider Internal Medicine; Emergency Provider Emergency Medicine; PCP Internal Medicine Infectious Disease; Visit Provider Internal Medicine
PROC: B24BZZ4 Ultrasonography of Heart with Aorta, Transesophageal (ICD-10-PCS; CPT 93312; principal; 2020-10-29 10:00)
DX: I63.322 Cerebral infarction due to thrombosis of left anterior cerebral artery (principal); G81.01 Flaccid hemiplegia affecting right dominant side; I10 Essential (primary) hypertension; M54.9 Dorsalgia, unspecified; G89.29 Other chronic pain; F17.210 Nicotine dependence, cigarettes, uncomplicated; N95.1 Menopausal and female climacteric states; Z79.899 Other long term (current) drug therapy
CPT/HCPCS: 36415; 70450; 70496; 70498; 70553; 72125; 80053; 80061; 83735; 84484; 85025; 85610; 85730; 93005; 93312; 93320; 93325; 93880; 96375; 97161; 97165; 99285; A9270; A9577; C8929; G0378; G0379; J2704; J7040; Q9957; Q9967

== ENCOUNTER 2020-12-08 08:30 | Outpatient (RCR) | payer BC, SELFPAY ==
--- NOTE | 2020-11-10 09:29 | PTOPEVAL ---
PHYSICAL THERAPY EVALUATION Thank you for referring Bijal Jimenez to [facility].? The patient is scheduled to be seen for therapy? 1x/week for 4 weeks. Please review, sign, date and return this plan of care JIMENEZ. I agree with and certify that the following plan of care is medically necessary. Referring Physician Date Attending Provider: Brigitte Estrada PA-C Evaluation Outpatient Past Medical History Neurological History Hx Cerebrovascular Accident (CVA) Yes: 10/26/20 Hx Migraine Yes Cardiovascular History Hx Hypertension Yes Respiratory History Hx Other Respiratory Disorders Yes: Seasonal Allergies Gastrointestinal History Hx Gastrointestinal Disorders No Significant History Genitourinary History Hx Genitourinary Disorders No Significant History Musculoskeletal History Hx Back Pain Yes: Bulging/Protruding Disc Hx Crutches or Walker Use Yes: walker Query Text:If Yes, Enter Crutches, Walker, or Both in the Comment Hematological History Hx Hematological Disorders No Significant History Endocrine History Hx Endocrine Disorders No Significant History HEENT History Hx Tonsillectomy Yes Hx Sinus Problems Yes: Seasonal Allergies Integumentary History Hx Skin Disorders No Significant History Reproductive History Hx Tubal Ligation Yes: 1989 Hx Other Reproductive Disorders Yes: Ablasion 2010 Psychosocial History Hx Anxiety Yes Hx Depression Yes Pain History Has Past Pain Affected Your Daily Life Yes: Sciatic Nerve, Lower back , neck, shoulders R/T protruding disc History of Long-Term Prescription Pain Yes: 1 year Medication Use (Opiates) Anesthesia History Hx Anesthesia Reactions No Significant History Diagnosis CVA on right Onset 10/27/20 Subjective Information States that she had a stroke Query Text:As Reported By Patient/ that affected her right side. Family She used a walker for a week but has been getting back into life. States that her only concern is she feels like she doesn't have a lot of strength in the right foot. States she is able to do all the things she needs to do. Does note a ringing in her left ear that started with the stroke. She stopped taking her gabapenton and the ringing reduced. Pain Score Pain Score 0: Self Report Lower Extremity Muscle Strength Testing Hip Strength Right Hip Flexi
--- NOTE | 2020-11-11 15:20 | OTOPEVAL ---
OCCUPATIONAL THERAPY EVALUATION AND DISCHARGE SUMMARY Patient presents for outpatient OT evaluation s/p acute CVA 10/26/20. At this time patient has intact and functional (R) UE strength and coordination. A regional recruiter/pinch strengthening HEP has been issued and patient demonstrates good understanding. No further skilled OT indicated at this time. Discharging patient with HEP. Thank you for referring Bijal Jimenez to [facility]. Please review, sign, date and return this D/C Note JIMENEZ. I agree with and certify that the following plan of care is medically necessary. Referring Physician Date Referring Provider: Brigitte Estrada PA-C *OT Outpatient Evaluation Start: 11/11/20 14:35 Freq: Status: Active Protocol: Document 11/11/20 14:36 JOE (Rec: 11/11/20 15:20 JOE [id number]) Therapy Assessment Status Assessment Status Assessment Status Evaluation Outpatient Past Medical History Past Medical History Source of Past Medical History Recalled from Previous Visit, Confirmed with Patient/Family Neurological History Hx Cerebrovascular Accident (CVA) Yes: 10/26/20 Hx Migraine Yes Cardiovascular History Hx Hypertension Yes Respiratory History Hx Other Respiratory Disorders Yes: Seasonal Allergies Gastrointestinal History Hx Gastrointestinal Disorders No Significant History Genitourinary History Hx Genitourinary Disorders No Significant History Musculoskeletal History Hx Back Pain Yes: Bulging/Protruding Disc Hx Crutches or Walker Use Yes: walker Query Text:If Yes, Enter Crutches, Walker, or Both in the Comment Hematological History Hx Hematological Disorders No Significant History Endocrine History Hx Endocrine Disorders No Significant History HEENT History Hx Tonsillectomy Yes Hx Sinus Problems Yes: Seasonal Allergies Integumentary History Hx Skin Disorders No Significant History Reproductive History Hx Tubal Ligation Yes: 1989 Hx Other Reproductive Disorders Yes: Ablasion 2010 Psychosocial History Hx Anxiety Yes Hx Depression Yes Pain History Has Past Pain Affected Your Daily Life Yes: Sciatic Nerve, Lower back , neck, shoulders R/T protruding disc History of Long-Term Prescription Pain Yes: 1 year Medication Use (Opiates) Anesthesia History Hx Anesthesia Reactions No Significant History Evaluation Information Problem Diagnosis CVA Onset 10/27/20 Subjective Information States that she had a stroke Query Text:As Reported By Patient/ that affected her right side. Family She used a walker for a week. States that she does not feel comfortable return
--- NOTE | 2020-12-08 08:53 | PTOPEVAL ---
PHYSICAL THERAPY DISCHARGE Thank you for referring Bijal Jimenez to [facility] [place].? Please review, sign, date and return this plan of care JIMENEZ. I agree with and certify that the following plan of care is medically necessary. Referring Physician Date Attending Provider: Brigitte Estrada PA-C Discharge Diagnosis CVA Onset 10/27/20 Subjective Information States that she had a stroke Query Text:As Reported By Patient/ that affected her right side. Family She reports she is having no difficulty at home and feels safe. Pain Assessment Timing of Pain Assessment Timing of Pain Assessment Pre-Treatment Self Report Self Report Pain Level 0 Pain Score Pain Score 0: Self Report Lower Extremity Muscle Strength Testing Hip Strength Right Hip Flexion Strength 5 Normal Hip Extension Strength 4+ Good + Hip Abduction Strength 4+ Good + Knee Strength Right Knee Flexion Strength 5 Normal Knee Extension Strength 5 Normal Ankle Strength Right Ankle Dorsiflexion Strength 4+ Good + Ankle Strength Comments 10 unilateral right heel raises Balance Assessment Lindsey Balance Assessment Sitting to Standing Independent w/out Hands Unsupported Stance Ability Safely- 2 minutes Sitting Unsupported, Feet on Floor Safely- 2 minutes Standing to Sitting Safely, Minimal Hand Use Transfer Ability Safely, Minimal Hand Use Unsupported Stance- Eyes Closed Safely, 10 seconds Unsupported Stance- Feet Together Independent, 1 minute Reaching Forward while Standing Confidently, 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 Floor Independent/Safe Look Behind Shoulder - Standing Shifts Weight Well Turning 360 Degrees Turns Bilateral, < 4 secs Unsupported Stance, Alternating Feet on (I)- 8 Steps in 20 secs Stair Unsupported Tandem Stance Achieves Tandem Unilateral Leg Stance Lifts Leg/Holds 5-10 secs LINDSEY Balance Evaluation Total Score (/56 55 points) Time Up Go (TUG) Timed Up and Go Test (TUG) (Seconds) 6 Comments 1month ago = 7seconds 5 Time Sit to Stand Time in Seconds 10.63 5 Time Sit to Stand Comments 1month ago: 13.54 Query Text:Normative Data: If Greater Than 15 Seconds, 74% Increase Risk for Recurrent Falls PT Clinical Summary Bijal is a 49 yo female presenting to outpatient physical therapy 6 weeks s/p CVA affecting right side. She reports she is driving now and she is doing her
== END 2020-12-08 10:20 | disposition home or self-care (01) ==
LOC: ANHPT 08:30
PROVIDERS: PCP Internal Medicine Infectious Disease; Visit Provider Physician Assistant
DX: I63.522 Cerebral infarction due to unspecified occlusion or stenosis of left anterior cerebral artery (principal)
CPT/HCPCS: 97110; 97162

== ENCOUNTER 2021-06-18 13:00 | Outpatient (RCR) | payer BC, SELFPAY ==
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
--- NOTE | 2021-03-26 15:57 | PCPTNOTE ---
On 03/26/21, the student, BELINDA Burrell, provided care and completed [facility] documentation on this patient. I have reviewed the student's documentation and agree with the findings.
--- NOTE | 2021-04-01 08:47 | PCPTNOTE ---
Patient called & cancelled scheduled appointment this date due to having a migraine.
--- NOTE | 2021-04-23 11:24 | PCPTNOTE ---
Patient called & cancelled scheduled appointment this date.
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
--- NOTE | 2021-05-21 11:30 | PCPTNOTE ---
Patient did not show up for scheduled appointment this date. Called and left voicemail.
--- NOTE | 2021-06-04 14:03 | PCPTNOTE ---
Patient called & cancelled scheduled appointment this date due to having no transportation.
--- NOTE | 2021-06-09 11:54 | PCPTNOTE ---
Patient called & cancelled scheduled appointment this date due to waiting on maintenance on emergency call to come fix rosita garcia stated they would arrive between 1-3pm.
--- NOTE | 2021-06-11 11:25 | PCPTNOTE ---
Patient did not show up for scheduled appointment this date.
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
== END 2021-06-18 15:32 | disposition home or self-care (01) ==
LOC: ANHPT 13:00
PROVIDERS: PCP Internal Medicine Infectious Disease; Visit Provider Nurse Practitioner Adult Health
DX: M48.062 Spinal stenosis, lumbar region with neurogenic claudication (principal)
CPT/HCPCS: 97014; 97110; 97140; 97161; G0283

== ENCOUNTER 2024-04-11 13:40 | Inpatient (IN) | payer BC, SELFPAY ==
[2024-04-11] VITALS (7 sets, daily range): BP systolic 106–143; BP diastolic 56–123; PULSE 82–107; RESP 15–87; TEMP 36.6–37.8; O2SAT 20–100; BMI 34.9
--- NOTE | ~2024-04-11 | CT_ITS ---
EXAMINATION: CT chest abdomen pelvis w con DATE: 04/14/2024 15:34 INDICATION: night sweats, anemia, high crp/plts/wbc . TECHNIQUE: Computed tomography (CT) of the chest, abdomen, and pelvis was performed with 100 mL Omnip aque-350 intravenous contrast. Automated exposure control and iterative reconstruction technique were employed. The dose-length product was 1438.31 mGy-cm. COMPARISON: X-ray chest, same date FINDINGS: CHEST: Thoracic aorta: No significant dilation. No dissection. Lung parenchyma and airways: Scattered calcified granulomas. Interlobular septal thickening. Subsegme ntal bilateral dependent consolidation. Scattered tree-in-bud and centrilobular nodular opacities, mo st notably in the right middle lobe. Mild patchy areas of groundglass opacity. Patent airways. Thoracic inlet, axillae and chest wall: No thyroid or soft tissue mass. No axillary lymphadenopathy. Mediastinum: Mildly enlarged mediastinal lymph nodes. Heart and pericardium: Normal heart size. Small pericardial effusion. Coronary artery calcifications: Mild. Pleura: Small bilateral pleural fluid collections, greater on the right. Thoracic bones: No acute osseous finding in the chest. ABDOMEN/PELVIS: Liver: Enlarged. Somewhat ill-defined 1.7 cm focus of hyperenhancement in the right liver lobe. Biliary/Gallbladder: Gallbladder is normal. No bile duct dilation. Pancreas: No mass or duct dilation. Spleen: Normal. Adrenals:No mass. Kidneys: Moderate bilateral perinephric stranding. Subtle, patchy lateral renal parenchymal enhanceme nt. Mild bilateral ureteral stranding. Simple right lower pole cyst. No hydronephrosis, suspicious ma ss, or obstructing calcification. GI tract: No small or large bowel dilation. Normal appendix. Diverticulosis without diverticulitis. Mesentery/Peritoneum: No ascites, mass, or free air. Retroperitoneum: No mass Atherosclerotic abdominal aortic and/or arterial calcifications. Pelvis: Normal urinary bladder, uterus, and bilateral ovaries. Soft Tissues: Soft tissues and body wall unremarkable. Abdominopelvic bones: No acute osseous finding in the abdomen/pelvis. IMPRESSION: Mild pulmonary edema. Nodular opacities best seen in the right middle lobe, consider infection, including atypical variants . Bilateral dependent subsegmental atelectasis/consolidation. Recommend short-term low-dose noncontrast CT of the chest (approximately 3 months) to confirm resolut ion of the nodular opacities. Small bilateral pleural effusions. Small pericardial effusion. Mild mediastinal lymphadenopathy. Hepatomegaly. Ill-defined hyperenhancing lesion in the right liver lobe, possible hemangioma. Consider MR of the li tr without and with contrast for further characterization. Renal findings suggestive of bilateral pyelonephritis. Reviewed, dictated and finalized at location K. IMPRESSION: Mild pulmonary edema. Nodular opacities best seen in the right middle lobe, consider infection, inclu ding atypical variants. Bilateral dependent subsegmental atelectasis/consolidat ion. Recommend short-term low-dose noncontrast CT of the chest (approximately 3 ivania hs) to confirm resolution of the nodular opacities. Small bilateral pleural effusions. Small pericardial effusion. Mild mediastinal lymphadenopathy. Hepatomegaly. Ill-defined hyperenhancing lesion in the right liver lobe, possible hemangioma. Consider MR of the liver without and with contrast for further characterizatio n. Renal findings suggestive of bilateral pyelonephritis.
--- NOTE | ~2024-04-11 | XR_ITS ---
EXAMINATION: XR chest 2V DATE: 04/11/2024 15:37 INDICATION: Sepsis. TECHNIQUE: Frontal and lateral views of the chest were obtained. COMPARISON: None. FINDINGS: There is no pneumonia, pleural effusion, or pneumothorax. The heart size is normal. IMPRESSION: 1. No acute cardiopulmonary disease. Reviewed, dictated and finalized at location A.
[2024-04-11 14:04] LABS: Hematocrit 24.4 % (37.0-47.0); Hemoglobin 8.7 g/dL (12.0-15.0); Mean Corpuscular HGB Conc 35.7 g/dl (32-36); Mean Corpuscular Hemoglobin 32.3 pg (26-34); Mean Corpuscular Volume 90.7 fl (80-100); Mean Platelet Volume 9.1 fl (7.4-10.4); Platelet Count Result 818 k/mm3 (150-375); Red Blood Count 2.69 M/mm3 (4.2-5.4); Red Cell Distribution Width 14.6 % (11.5-14.5); White Blood Count 20.1 K/mm3 (4.5-10.0)
[2024-04-11 14:16] LABS: Alanine Aminotransferase 29 U/L (6-35); Albumin Level 3.1 g/dL (3.5-5.1); Alkaline Phosphatase 131 U/L (38-126); Anion Gap 10 mmol/L (4-12); Aspartate Amino Transferase 33 U/L (14-36); Blood Urea Nitrogen 27 mg/dL (7-17); Calcium 8.7 mg/dL (8.4-10.2); Carbon Dioxide 23 mmol/L (22-30); Chloride 105 mmol/L (98-107); Estimated Glomerular Filt Rate 36; Glucose 132 mg/dL (65-110); Potassium 3.1 mmol/L (3.4-5.0); Sodium 138 mmol/L (137-145)
[2024-04-11 14:29] LABS: Basophils Percent Manual 1 % (0-1); Lymphocytes Absolute Manual 3.01 K/mm3 (1.1-4.5); Monocytes Percent Manual 6 % (3-9); Neutrophils Percent Manual 78 % (46-73); Total Cells Counted 100
[2024-04-11 14:30] LABS: Platelet Estimate Increased (Adequate); Schistocytes None Seen
[2024-04-11 14:31] LABS: Anisocytosis 1+
--- NOTE | 2024-04-11 15:01 | ED.RECABL ---
HPI - Recheck/Abnormal Lab/Rx General Chief Complaint: Recheck/Abnormal Lab/Rx <KYM Foley Last Filed: 04/11/24 15:28> Stated Complaint: abnormal blood work <KYM Foley Last Filed: 04/11/24 15:28> Time Seen by Provider: 04/11/24 15:01 <KYM Foley Last Filed: 04/11/24 15:28> Focused HPI: Patient is a 53 y/o female who presents to the ED with c/o abnormal labs. Patient reports she had routine blood work done yesterday and received a call from her primary, Dr. Rivas, today to come to the ED for further evaluation. Patient is unsure which labs were abnormal. Patient reports she has been since recently. She had a UTI 2 weeks ago with pain, frequency, urgency. Took OTC AZO at that time and states sx's improved. She then developed flu-like sx's around 03/31, including fever, HAs, body aches, cough. States most of these sx's have resolved. She does still feel weak and fatigued. States she has been eating and drinking fine. Denies recent fevers, rectal bleeding, melena. Patient showed me labs on her phone, [employer] 04/2023 0.7, normal Hgb. GENERAL: Appears older than stated age, well-nourished, and in no acute distress. HEAD: Normocephalic, atraumatic. CHEST: Clear to auscultation. ?No respiratory distress. HEART: Regular rate and rhythm.? NEURO: ?Alert and oriented x3. Patient screened in triage and initial orders placed.? ?Additional care and disposition to be based upon?diagnostic testing and treatment. <KYM Foley Last Filed: 04/11/24 15:28> Source: patient <KYM Foley Last Filed: 04/11/24 15:28> Mode of arrival: ambulatory <KYM Foley Filed: 04/11/24 15:28> Limitations: no limitations <KYM Foley Filed: 04/11/24 15:28> History of Present Illness HPI narrative: Agree with the HPI <Mark Rosales MD - Last Filed: 04/11/24 18:31> Related Data Home Medications: Home Medications Medication Instructions Recorded Confirmed baclofen 10 mg tablet 10 mg PO TID PRN Bone 10/27/20 10/20/21 Disease/Protruding Disc losartan 100 mg tablet 100 mg PO DAILY 10/27/20 10/20/21 cetirizine 10 mg tablet 10 mg PO DAILY PRN 04/23/21 10/20/21 duloxetine 60 mg capsule,delayed 60 mg PO DAILY 04/23/21 10/20/21 release gabapentin 300 mg capsule 300 mg PO TID 04/23/21 10/20/21 hydrochlorothiazide 25 mg tablet 25 mg PO DAILY 04/23/21 10/20/21 multivitamin 1 tablet PO DAILY 04/23/21 10/20/21 multivitamin,Ca,mineral-folic 1 tablet PO DAILY 04/23/21 10/20/21 acid-herbal no.157 400 mcg tablet ([place] Maximum Strength) tramadol 50 mg tablet 25 mg PO TID PRN 04/23/21 10/20/21 <Brigitte Riddle PA-C - Last Filed: 04/11/24 15:28> Allergies/Adverse Reactions: Allergies Allergy/AdvReac Type Severity Reaction Status Date / Time fentanyl AdvReac Nausea and Verified 10/20/21 13:38 Vomiting Sulfa (Sulfonamide AdvReac Fever Verified 10/20/21 13:38 Antibiotics) <Brigitte Riddle PA-C - Last Filed: 04/11/24 15:28> Review of Systems Review of Systems: All systems reviewed & are unremarkable except as noted in HPI and below <Mark Rosales MD - Last Filed: 04/11/24 18:31> Constitutional: Constitutional: Denies chills, Reports fatigue and Denies fever(s) <Mark Rosales MD - Last Filed: 04/11/24 18:31> ENT: Reports system reviewed and no additional complaints, except as documented <Mark Rosales MD - Last Filed: 04/11/24 18:31> Cardiovascular: Cardiovascular: Reports no additional cardiovascular complaints <Mark Rosales MD - Last Filed: 04/11/24 18:31> Respiratory: Respiratory: Reports no additional respiratory complaints <Mark Rosales MD - Last Filed: 04/11/24 18:31> Genitourinary: Genitourinary: Denies nocturia, Reports dysuria and Denies flank pain <Mark Rosales MD - Last Filed: 04/11/24 18:31> Mu
[2024-04-11] MEDS: POTASSIUM CHLORIDE 20 MEQ ER TABLET 40 MEQ PO (16:25)
[2024-04-11] MEDS: SODIUM CHLORIDE 0.9% IV 1,000 ML 999 ML IV CONT (16:25)
[2024-04-11 16:31] LABS: Prothrombin Time 14.1 Seconds (11.1-14.7)
[2024-04-11 16:36] LABS: Magnesium 1.8 mg/dL (1.6-2.3)
[2024-04-11 16:49] LABS: Add Urine Microscopic? YES; Appearance Urine Cloudy (Clear); Bacteria Urine Rare /hpf; Bilirubin Urine Negative (Negative); Blood Urine Negative (Negative); Color Urine Yellow (Yellow); Glucose Urine UA Negative (Negative); Ketones Urine Negative (Negative); Lactic Acid Reflex 1.1 mmol/L (0.7-2.0); Leukocyte Esterase Ur 2+ LEU/UL (Negative); Nitrate Urine Negative (Negative); Non Pathogenic Casts 0-2; Protein Urine 1+ mg/dL (Negative); Specific Grav Ur 1.015 (1.001-1.035); Squamous Epithelial Cell Urine Moderate /hpf (Few); Urobilinogen Urine 0.2 mg/dL (<2.0); WBC Urine 21-50 /hpf (0-3); pH Urine 5.5 (5.0-9.0)
[2024-04-11 17:06] LABS: CRP 30.6 mg/dL (<1.0)
[2024-04-11 17:42] LABS: Thyroid Stimulating Hormone 0.773 uIU/mL (0.465-4.680)
--- NOTE | 2024-04-11 18:06 | PC.NURSE ---
standard regular diet dinner tray ordered
--- NOTE | 2024-04-11 18:28 | PM.IMHP ---
H&P: HPI History of Present Illness Date/Time: 04/11/24 18:28 Chief Complaint: abnormal labs Narrative: 53 with history of chronic back pain, CVA and hypertension presents to the hospital after patient was called by her PCP after having routine labs done With abnormal results and was recommended to go to the emergency room. patient states that she can not remember was labs were normal. Patient states that she feels healthy was surprised her primary care provider recommended for her to the emergency room. Patient denies pain, shortness of breath, nausea, vomiting, dark or bloody stools, fever or chills. patient states last week she had extremely painful urinary tract infection and took AZO with relief of pain. She states that she has still has frequent urination. In the ED she was found to have a hgb of 8.7, WBC 20.1, plateles 818, K 3.1, and Cr of 1.5 with baseline 0.8. She was started on Rocephin and IVF. Review of Systems Constitutional: Constitutional: Reports no additional constitutional complaints Eyes: Eyes: Reports no additional eye complaints ENT: Reports system reviewed and no additional complaints, except as documented Cardiovascular: Cardiovascular: Reports no additional cardiovascular complaints Respiratory: Respiratory: Reports no additional respiratory complaints Gastrointestinal: Gastrointestinal: Reports no additional gastrointestinal complaints Genitourinary: Genitourinary: Reports urinary incontinence Musculoskeletal: Musculoskeletal: Reports no additional musculoskeletal complaints Integumentary/Breasts: Skin/Breast: Reports wounds (lower back-healing) Psychiatric: Psychiatric: Reports no additional psychiatric complaints PMFSH Past Medical History Medical History Chronic back pain CVA (cerebral vascular accident) may be cardioembolic in nature; thus BERE Hypertension Tobacco abuse Surgical History Surgical History H/O nasal polypectomy H/O tubal ligation History of endometrial ablation History of tonsillectomy Family History Family History Father Pulmonary fibrosis Mother Breast cancer Alzheimer's dementia Social History Social History Social History: The patient is and she desires to have her is the surrogate decision maker. The patient desires to be a full code. She has 2 children. She is the homemaker. The patient smokes about a pack to pack and half a day. She does not use any alcohol but uses marijuana daily. No illicit drugs. Smoking packs per day: 0.5 Smoking cigarettes per day: 10.0 Years smoked: 36 Smoking pack-years: 18.00 Smoking status: Current every day smoker Tobacco type: cigarettes Alcohol intake: never Drinks per week: 14 Substance use: current Substance use type: marijuana Last use: 10/26/2020 Do You Feel Safe in your Home?: Yes Lack of Transportation: No Lack of Food: Never True Current Housing: I Have Housing Concerned About Future Housing: No Difficulty Paying Gas/Electric Bills: No Difficulty Paying for Meds: No Currently Unemployed: No Education: High School Diploma/GED Difficulty w/ Childcare or Family Care: No Gender identity (if verbalized by the patient): Female Spiritual care concerns: No Meds Home Medications and Allergies Home Medications Medication Instructions Recorded Confirmed Type baclofen 10 mg tablet 10 mg PO TID PRN Bone 10/27/20 04/11/24 History Disease/Protruding Disc losartan 100 mg tablet 100 mg PO DAILY 10/27/20 04/11/24 History amlodipine 5 mg tablet 5 mg PO DAILY #30 tabs 10/29/20 04/11/24 Rx aspirin 81 mg tablet,delayed 81 mg PO QAM #30 tabs 10/29/20 04/11/24 Rx release cetirizine 10 mg tablet (Zyrtec) 10 mg PO BID PRN ALLERGIES 04/23/21 1
[2024-04-11] MEDS: NICOTINE (*PBKC) 21 MG PATCH 1 PATCH (18:50)
[2024-04-11 19:04] LABS: Influenza A QL RT-PCR Negative (Negative); Influenza B QL RT-PCR Negative (Negative); RSV RNA, RT-PCR Negative (Negative); SARS-CoV-2 RNA PCR Negative (Negative)
--- NOTE | 2024-04-11 20:15 | ADMGEN ---
This patient, Bijal Jimenez, was admitted to 2 Medical Room 260-. Patient/family oriented to hospital policies and general routines including ID bracelet, bed and alarms, visiting hours, pain management, procedures, bathroom and other care routines, personal items, smoking policy, room service/diet, and visiting hours. Information on how to activate the Rapid Response Team has been discussed. Patient/Family are encouraged to report perceived risks to care and to ask questions if they do not understand what they are told or what they should do.
[2024-04-11] MEDS: SODIUM CHLORIDE 0.9% IV 1,000 ML 125 ML IV CONT (20:27)
[2024-04-11 21:53] LABS: Folic Acid 9.6 ng/mL (2.76->20); Vitamin B12 > 1000.0 pg/mL (239-931)
[2024-04-11] MEDS: GABAPENTIN 300 MG CAPSULE PO (21:59)
[2024-04-11] MEDS: LORATADINE 10 MG TABLET PO (21:59)
[2024-04-11] MEDS: DULoxetine HCL 60 MG CAPSULE.DR PO (21:59)
[2024-04-11] MEDS: BACLOFEN 10 MG TABLET PO (22:03)
[2024-04-11 22:52] LABS: Iron 16 ug/dL (37-170)
[2024-04-11 23:02] LABS: Percent Iron Saturation 8 % (20-50)
[2024-04-12] VITALS (7 sets, daily range): BP systolic 112–149; BP diastolic 49–94; PULSE 91–108; RESP 18–22; TEMP 36.9–37.9; O2SAT 94–98
[2024-04-12] MEDS: ACETAMINOPHEN 325 MG TABLET 650 MG PO ×2 (00:05→17:19)
[2024-04-12] MEDS: SODIUM CHLORIDE 0.9% IV 1,000 ML 125 ML IV CONT ×3 (04:03→20:48)
[2024-04-12 07:18] LABS: Basophils Absolute Auto 0.1 K/mm3 (0.0-0.1); Basophils Percent Auto 0.3 % (0.2-1.2); Eosinophils Absolute Auto 0.1 K/mm3 (0-0.3); Eosinophils Percent Auto 0.5 % (0-4.4); Hemoglobin 7.9 g/dL (12.0-15.0); Immature Granulocyte Absolute 0.32 K/mm3 (0.00-0.031); Immature Granulocyte Percent A 1.5 % (0-0.5); Lymphocytes Absolute Auto 3.39 K/mm3 (0.9-3.2); Lymphocytes Percent Auto 16.2 % (18.3-44.2); Mean Corpuscular HGB Conc 35.9 g/dl (32-36); Mean Corpuscular Hemoglobin 32.5 pg (26-34); Mean Corpuscular Volume 90.5 fl (80-100); Mean Platelet Volume 9.2 fl (7.4-10.4); Monocytes Absolute Auto 1.9 K/mm3 (0.1-0.6); Monocytes Percent Auto 8.9 % (2.6-8.5); Neutrophils Absolute Auto 15.2 K/mm3 (1.3-6.7); Neutrophils Percent Auto 72.6 % (45.5-73.1); Platelet Count Result 820 k/mm3 (150-375); Red Blood Count 2.43 M/mm3 (4.2-5.4); Red Cell Distribution Width 14.7 % (11.5-14.5); White Blood Count 20.9 K/mm3 (4.5-10.0)
[2024-04-12 07:38] LABS: Anion Gap 7 mmol/L (4-12); Blood Urea Nitrogen 23 mg/dL (7-17); Calcium 8.2 mg/dL (8.4-10.2); Carbon Dioxide 22 mmol/L (22-30); Chloride 106 mmol/L (98-107); Estimated CRCL calculation 41 ml/min; Estimated Glomerular Filt Rate 33; Glucose 111 mg/dL (65-110); Potassium 2.9 mmol/L (3.4-5.0); Sodium 135 mmol/L (137-145)
[2024-04-12] MEDS: ENOXAPARIN 40 MG/0.4 ML SYRINGE SUB-Q (08:11)
[2024-04-12] MEDS: amLODIPine BESYLATE 5 MG TABLET PO (08:12)
[2024-04-12] MEDS: ASPIRIN 81 MG ENTERIC TABLET PO (08:12)
[2024-04-12] MEDS: LOSARTAN POTASSIUM 100 MG TABLET PO (08:12)
[2024-04-12] MEDS: ATORVASTATIN 40 MG TABLET PO (08:12)
[2024-04-12] MEDS: hydroCHLOROthiazide 25 MG TABLET PO (08:12)
[2024-04-12] MEDS: GABAPENTIN 300 MG CAPSULE PO ×2 (08:12→17:12)
[2024-04-12] MEDS: LORATADINE 10 MG TABLET PO ×2 (08:20→20:46)
[2024-04-12] MEDS: BACLOFEN 10 MG TABLET PO ×2 (08:20→20:46)
[2024-04-12] MEDS: POTASSIUM CHLORIDE 20 MEQ PACKET (FOR LIQUID) 40 MEQ PO ×2 (08:20→17:12)
[2024-04-12 09:27] LABS: IFOB Positive Control Positive; Immunochemical Fecal Occult Bl Negative (N)
[2024-04-12] MEDS: NICOTINE (*PBKC) 21 MG PATCH 1 PATCH TRANSDERM (10:03)
--- NOTE | 2024-04-12 16:35 | PM.IMPN ---
Progress Note: A&P Assessment and Plan (1) Anemia: Qualifiers: Anemia type: unspecified type Qualified Code(s): D64.9 - Anemia, unspecified Code(s): D64.9 - Anemia, unspecified Status: Acute Assessment and Plan: anemia workup ferritin, iron, and TIBC pending occult stool sample pending No signs of acute bleeding (2) UTI (urinary tract infection): Code(s): N39.0 - Urinary tract infection, site not specified Status: Acute Assessment and Plan: IVF for hydration IV Rocephin Await urine culture (3) JAMES (acute kidney injury): Code(s): N17.9 - Acute kidney failure, unspecified Status: Acute Assessment and Plan: baseline 0.8 CREATININE ON ADMISSION 1.5 IV fluids for hydration daily BMP (4) Leukocytosis: Code(s): D72.829 - Elevated white blood cell count, unspecified Status: Acute Assessment and Plan: WBC on admission 20.1 chest x-ray clear blood cultures pending respiratory panel negative for acute process no signs of SSI, respiratory process, could be reactive from recent/ current UTI (5) Acute ischemic left IVONNE stroke: Code(s): I63.522 - Cerebral infarction due to unspecified occlusion or stenosis of left anterior cerebral artery Status: Acute Assessment and Plan: continue aspirin patient had Plavix on her home med list however she states that she has never taken this and does not remember the doctor's name she needs to be on (6) Chronic back pain: Qualifiers: Back pain location: back pain in unspecified location Code(s): M54.9 - Dorsalgia, unspecified; G89.29 - Other chronic pain Status: Chronic Assessment and Plan: chronic continue home medications Plan Time Spent With Patient Time with patient: 15 - 25 minutes Subjective Date/time seen: 04/12/24 3059 Review of Systems Review of Systems: All systems reviewed & are unremarkable except as noted in HPI and below Exam Narrative: Pt reports that she had been camping with her friend for a week last week and believes she may not have drank enough water. States shortly after returning home she developed dysuria and frequency. She started taking AZO OTC and symptoms improved. States a couple days after that she thought she had the flu and had fever, chills, and body aches for a few days. States she now thinks this all may have started from the UTI. Denies any c/o at present. Const: General: comfortable and no acute distress Other: Pleasant and jovial HENMT: Face/Nose/Sinus: Normal nares present Mouth: Yes moist mucous membranes Eyes: General: appearance normal, both eyes and all related structures Sclera: sclerae normal Pupils: Equal, round and reactive pupils present EOM: EOMs intact bilaterally Neck: Neck: supple and no JVD Resp: Effort & Inspection: normal respiratory effort Auscultation: clear to auscultation bilaterally Cardio: Rate: regular rate GI: Other: Flat abdomen is soft and non tender to palpation with positive bowel sounds present x 4 quadrants. Negative CVA tenderness. Skin: General skin exam: normal color and no rashes or lesions noted Neuro: Speech: normal speech Motor exam (neuro): Normal motor muscle tone present throughout Sensory Exam: normal sensation Extrem: General: normal to inspection Psych: Mental Status: mental status grossly normal Affect: normal affect Objective Data Vital Signs Vital Signs: Vital Signs - 24 hr 04/11/24 16:59 04/11/24 17:01 04/11/24 19:15 Temperature 98.5 F Pulse Rate 92 82 Respiratory Rate 19 18 Blood Pressure 106/59 L 130/86 Pulse Oximetry 99 100 Oxygen Delivery Fraction of Inspired Oxygen 99 04/11/24 21:00 04/11/24 22:00 04/12/24 00:05 Temperature 100.0 F H 100.3 F H Pulse Rate 82 105 H Respiratory Rate 18 18 Blood Pressure 110/84
[2024-04-12] MEDS: DULoxetine HCL 60 MG CAPSULE.DR PO (20:46)
[2024-04-13 00:52] VITALS: TEMP 37.4
[2024-04-13] MEDS: ACETAMINOPHEN 325 MG TABLET 650 MG PO ×3 (00:52→23:30)
[2024-04-13 00:55] VITALS: TEMP 37.4
[2024-04-13 04:27] LABS: Basophils Percent Auto 0.2 % (0.2-1.2); Eosinophils Absolute Auto 0.1 K/mm3 (0-0.3); Eosinophils Percent Auto 0.5 % (0-4.4); Hemoglobin 7.3 g/dL (12.0-15.0); Immature Granulocyte Absolute 0.19 K/mm3 (0.00-0.031); Lymphocytes Absolute Auto 3.25 K/mm3 (0.9-3.2); Lymphocytes Percent Auto 16.9 % (18.3-44.2); Mean Corpuscular HGB Conc 35.1 g/dl (32-36); Mean Corpuscular Hemoglobin 32.4 pg (26-34); Mean Corpuscular Volume 92.4 fl (80-100); Mean Platelet Volume 9.1 fl (7.4-10.4); Monocytes Absolute Auto 1.2 K/mm3 (0.1-0.6); Monocytes Percent Auto 6.3 % (2.6-8.5); Neutrophils Absolute Auto 14.5 K/mm3 (1.3-6.7); Neutrophils Percent Auto 75.1 % (45.5-73.1); Platelet Count Result 805 k/mm3 (150-375); Red Blood Count 2.25 M/mm3 (4.2-5.4); Red Cell Distribution Width 15.1 % (11.5-14.5); White Blood Count 19.3 K/mm3 (4.5-10.0)
[2024-04-13 04:30] LABS: Hematocrit 20.8 % (37.0-47.0)
[2024-04-13 04:38] LABS: Anion Gap 5 mmol/L (4-12); Blood Urea Nitrogen 19 mg/dL (7-17); Calcium 8.5 mg/dL (8.4-10.2); Carbon Dioxide 25 mmol/L (22-30); Chloride 108 mmol/L (98-107); Estimated CRCL calculation 54 ml/min; Estimated Glomerular Filt Rate 47; Glucose 109 mg/dL (65-110); Potassium 4.3 mmol/L (3.4-5.0); Sodium 138 mmol/L (137-145)
[2024-04-13] MEDS: SODIUM CHLORIDE 0.9% IV 1,000 ML 125 ML IV CONT ×2 (05:27→17:46)
[2024-04-13 06:00] VITALS: BP 108/53; PULSE 72; RESP 18; TEMP 37; O2SAT 94
[2024-04-13] MEDS: ASCORBIC ACID 500 MG TABLET PO (09:08)
[2024-04-13] MEDS: FERROUS GLUCONATE 324 MG TABLET PO (09:08)
[2024-04-13] MEDS: amLODIPine BESYLATE 5 MG TABLET PO (09:09)
[2024-04-13] MEDS: ATORVASTATIN 40 MG TABLET PO (09:09)
[2024-04-13] MEDS: GABAPENTIN 300 MG CAPSULE PO ×2 (09:09→17:45)
[2024-04-13] MEDS: LOSARTAN POTASSIUM 100 MG TABLET PO (09:09)
[2024-04-13] MEDS: ASPIRIN 81 MG ENTERIC TABLET PO (09:09)
[2024-04-13] MEDS: hydroCHLOROthiazide 25 MG TABLET PO (09:09)
[2024-04-13] MEDS: LORATADINE 10 MG TABLET PO ×2 (09:11→23:00)
[2024-04-13] MEDS: BACLOFEN 10 MG TABLET PO ×3 (09:11→23:00)
[2024-04-13] MEDS: POTASSIUM CHLORIDE 20 MEQ PACKET (FOR LIQUID) 40 MEQ PO (09:12)
[2024-04-13] MEDS: NICOTINE (*PBKC) 21 MG PATCH 1 PATCH TRANSDERM ×2 (09:12→17:48)
[2024-04-13] MEDS: ENOXAPARIN 40 MG/0.4 ML SYRINGE SUB-Q (09:12)
[2024-04-13 14:00] VITALS: BP 116/62; PULSE 102; RESP 16; TEMP 36.4; O2SAT 99
--- NOTE | 2024-04-13 16:59 | PM.IMPN ---
Progress Note: A&P Assessment and Plan (1) Anemia: Qualifiers: Anemia type: unspecified type Qualified Code(s): D64.9 - Anemia, unspecified Code(s): D64.9 - Anemia, unspecified Status: Acute Assessment and Plan: anemia workup ferritin, iron, and TIBC - all low - start ferrous gluconate and vitamin-C -repeat CBC in the morning occult stool sample -Negative No signs of acute bleeding (2) UTI (urinary tract infection): Code(s): N39.0 - Urinary tract infection, site not specified Status: Acute Assessment and Plan: IVF for hydration IV Rocephin Await urine culture (3) JAMES (acute kidney injury): Code(s): N17.9 - Acute kidney failure, unspecified Status: Acute Assessment and Plan: baseline 0.8 CREATININE ON ADMISSION 1.2 IV fluids for hydration daily BMP (4) Leukocytosis: Code(s): D72.829 - Elevated white blood cell count, unspecified Status: Acute Assessment and Plan: WBC on admission 20.1 -today down to 19.3 chest x-ray clear blood cultures pending respiratory panel negative for acute process no signs of SSI, respiratory process, could be reactive from recent/ current UTI (5) Acute ischemic left IVONNE stroke: Code(s): I63.522 - Cerebral infarction due to unspecified occlusion or stenosis of left anterior cerebral artery Status: Acute Assessment and Plan: continue aspirin patient had Plavix on her home med list however she states that she has never taken this and does not remember the doctor's name she needs to be on (6) Chronic back pain: Qualifiers: Back pain location: back pain in unspecified location Code(s): M54.9 - Dorsalgia, unspecified; G89.29 - Other chronic pain Status: Chronic Assessment and Plan: chronic continue home medications Plan Time Spent With Patient Time with patient: 15 - 25 minutes Subjective Date/time seen: 04/13/24 1110 Interval history: Patient denies any further nausea, vomiting, diarrhea. Patient denies any dysuria or urinary frequency. Stool for occult blood returned negative, iron studies are returned low. Will start patient on ferrous gluconate and oral vitamin-C. Patient continues on Rocephin 1 g for the acute cystitis. Will continue and await urine culture. Lab work reveals WBC is only down to 19.3 today the rest the lab work fairly unremarkable. Discussed with patient and will continue to await urine culture. Patient in agreement. Review of Systems Review of Systems: All systems reviewed & are unremarkable except as noted in HPI and below Constitutional: Constitutional: Reports no additional constitutional complaints Eyes: Eyes: Reports no additional eye complaints ENT: Reports system reviewed and no additional complaints, except as documented Cardiovascular: Cardiovascular: Reports no additional cardiovascular complaints Respiratory: Respiratory: Reports no additional respiratory complaints Gastrointestinal: Gastrointestinal: Reports no additional gastrointestinal complaints Genitourinary: Genitourinary: Reports urinary incontinence Musculoskeletal: Musculoskeletal: Reports no additional musculoskeletal complaints Psychiatric: Psychiatric: Reports no additional psychiatric complaints Exam Narrative: Patient lying in right lateral recumbent position upon entering room. Alert and oriented x4 and in no acute distress. Const: General: comfortable and no acute distress Other: Pleasant and jovial HENMT: Face/Nose/Sinus: Normal nares present Mouth: Yes moist mucous membranes Eyes: General: appearance normal, both eyes and all related structures Sclera: sclerae normal Pupils: Equal, round and reactive pupils present EOM: EOMs intact bilaterally Neck: Neck: supple and no JVD Resp: Effort & Inspection: normal respiratory effort Auscultati
[2024-04-13 21:07] VITALS: BP 133/70; PULSE 91; RESP 18; TEMP 36.4; O2SAT 98
[2024-04-13] MEDS: DULoxetine HCL 60 MG CAPSULE.DR PO (21:08)
[2024-04-14] MEDS: ACETAMINOPHEN 325 MG TABLET 650 MG PO ×2 (03:40→20:51)
[2024-04-14 05:31] LABS: Basophils Absolute Auto 0.1 K/mm3 (0.0-0.1); Basophils Percent Auto 0.3 % (0.2-1.2); Eosinophils Absolute Auto 0.2 K/mm3 (0-0.3); Eosinophils Percent Auto 1.4 % (0-4.4); Hematocrit 21.8 % (37.0-47.0); Hemoglobin 7.2 g/dL (12.0-15.0); Immature Granulocyte Absolute 0.12 K/mm3 (0.00-0.031); Immature Granulocyte Percent A 0.7 % (0-0.5); Lymphocytes Absolute Auto 3.16 K/mm3 (0.9-3.2); Lymphocytes Percent Auto 18.8 % (18.3-44.2); Mean Corpuscular Hemoglobin 31.3 pg (26-34); Mean Corpuscular Volume 94.8 fl (80-100); Mean Platelet Volume 9.1 fl (7.4-10.4); Monocytes Absolute Auto 1.5 K/mm3 (0.1-0.6); Monocytes Percent Auto 8.9 % (2.6-8.5); Neutrophils Absolute Auto 11.8 K/mm3 (1.3-6.7); Neutrophils Percent Auto 69.9 % (45.5-73.1); Platelet Count Result 911 k/mm3 (150-375); White Blood Count 16.8 K/mm3 (4.5-10.0)
[2024-04-14 05:40] LABS: Anion Gap 8 mmol/L (4-12); Blood Urea Nitrogen 13 mg/dL (7-17); Calcium 8.9 mg/dL (8.4-10.2); Carbon Dioxide 24 mmol/L (22-30); Chloride 106 mmol/L (98-107); Estimated CRCL calculation 64 ml/min; Estimated Glomerular Filt Rate 58; Glucose 109 mg/dL (65-110); Potassium 3.9 mmol/L (3.4-5.0); Sodium 138 mmol/L (137-145)
[2024-04-14 05:52] VITALS: BP 133/62; PULSE 70; RESP 18; TEMP 36.5; O2SAT 97
[2024-04-14] MEDS: ASCORBIC ACID 500 MG TABLET PO (09:18)
[2024-04-14] MEDS: amLODIPine BESYLATE 5 MG TABLET PO (09:18)
[2024-04-14] MEDS: hydroCHLOROthiazide 25 MG TABLET PO (09:18)
[2024-04-14] MEDS: ASPIRIN 81 MG ENTERIC TABLET PO (09:18)
[2024-04-14] MEDS: LOSARTAN POTASSIUM 100 MG TABLET PO (09:18)
[2024-04-14] MEDS: GABAPENTIN 300 MG CAPSULE PO ×2 (09:18→17:05)
[2024-04-14] MEDS: ATORVASTATIN 40 MG TABLET PO (09:19)
[2024-04-14] MEDS: FERROUS GLUCONATE 324 MG TABLET PO (09:19)
[2024-04-14] MEDS: ENOXAPARIN 40 MG/0.4 ML SYRINGE SUB-Q (09:19)
[2024-04-14] MEDS: SODIUM CHLORIDE 0.9% IV 1,000 ML 75 ML IV CONT (09:19)
[2024-04-14] MEDS: LORATADINE 10 MG TABLET PO ×2 (09:29→20:52)
[2024-04-14] MEDS: BACLOFEN 10 MG TABLET PO ×3 (09:29→20:52)
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
[2024-04-14 12:39] LABS: Rheumatoid Factor 12.7 IU/ML (<12)
[2024-04-14 13:09] LABS: CRP 23.4 mg/dL (<1.0)
[2024-04-14 13:22] LABS: Hepatitis B Surface Antigen Negative (Negative)
[2024-04-14 13:27] LABS: Hepatitis B Core IgM Result Negative (Negative)
[2024-04-14 13:40] LABS: Hepatitis C Virus Antibody Negative (Negative)
[2024-04-14 14:00] VITALS: BP 120/75; PULSE 104; RESP 14; TEMP 36.5; O2SAT 93
[2024-04-14 20:00] VITALS: PULSE 64; RESP 18; O2SAT 98
[2024-04-14] MEDS: CEFDINIR 300 MG CAPSULE PO (20:51)
[2024-04-14] MEDS: DULoxetine HCL 60 MG CAPSULE.DR PO (20:51)
[2024-04-14] MEDS: NICOTINE (*PBKC) 21 MG PATCH 1 PATCH TRANSDERM (21:01)
[2024-04-14 22:00] VITALS: BP 144/72; PULSE 64; RESP 18; TEMP 36.6; O2SAT 98
[2024-04-15] MEDS: ACETAMINOPHEN 325 MG TABLET 650 MG PO ×2 (05:27→12:20)
[2024-04-15 05:54] VITALS: BP 114/67; PULSE 92; RESP 18; TEMP 36.3; O2SAT 98
[2024-04-15 06:06] LABS: Basophils Absolute Auto 0.1 K/mm3 (0.0-0.1); Basophils Percent Auto 0.5 % (0.2-1.2); Eosinophils Absolute Auto 0.2 K/mm3 (0-0.3); Eosinophils Percent Auto 1.5 % (0-4.4); Hematocrit 22.9 % (37.0-47.0); Hemoglobin 7.5 g/dL (12.0-15.0); Immature Granulocyte Percent A 0.7 % (0-0.5); Lymphocytes Absolute Auto 4.02 K/mm3 (0.9-3.2); Lymphocytes Percent Auto 26.4 % (18.3-44.2); Mean Corpuscular HGB Conc 32.8 g/dl (32-36); Mean Corpuscular Hemoglobin 31.3 pg (26-34); Mean Corpuscular Volume 95.4 fl (80-100); Monocytes Absolute Auto 1.4 K/mm3 (0.1-0.6); Monocytes Percent Auto 9.2 % (2.6-8.5); Neutrophils Absolute Auto 9.4 K/mm3 (1.3-6.7); Neutrophils Percent Auto 61.7 % (45.5-73.1); Platelet Count Result 945 k/mm3 (150-375); Red Cell Distribution Width 15.1 % (11.5-14.5); White Blood Count 15.2 K/mm3 (4.5-10.0)
[2024-04-15 06:16] LABS: Anion Gap 6 mmol/L (4-12); Blood Urea Nitrogen 10 mg/dL (7-17); Calcium 8.8 mg/dL (8.4-10.2); Carbon Dioxide 29 mmol/L (22-30); Chloride 103 mmol/L (98-107); Estimated CRCL calculation 64 ml/min; Estimated Glomerular Filt Rate 58; Glucose 103 mg/dL (65-110); Potassium 3.5 mmol/L (3.4-5.0); Sodium 138 mmol/L (137-145)
[2024-04-15] MEDS: LORATADINE 10 MG TABLET PO (09:13)
[2024-04-15] MEDS: CEFDINIR 300 MG CAPSULE PO (09:13)
[2024-04-15] MEDS: ATORVASTATIN 40 MG TABLET PO (09:14)
[2024-04-15] MEDS: ENOXAPARIN 40 MG/0.4 ML SYRINGE SUB-Q (09:14)
[2024-04-15] MEDS: POTASSIUM CHLORIDE 20 MEQ ER TABLET 40 MEQ PO (09:14)
[2024-04-15] MEDS: BACLOFEN 10 MG TABLET PO ×2 (09:14→12:20)
[2024-04-15] MEDS: GABAPENTIN 300 MG CAPSULE PO (09:14)
[2024-04-15] MEDS: ASPIRIN 81 MG ENTERIC TABLET PO (09:14)
[2024-04-15] MEDS: ASCORBIC ACID 500 MG TABLET PO (09:14)
[2024-04-15] MEDS: amLODIPine BESYLATE 5 MG TABLET PO (09:14)
[2024-04-15] MEDS: LOSARTAN POTASSIUM 100 MG TABLET PO (09:14)
[2024-04-15] MEDS: FERROUS GLUCONATE 324 MG TABLET PO (12:20)
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
[2024-04-15] MEDS: IRON SUCROSE COMPLEX 400 MG, IRON SUCROSE COMPLEX 100 MG in SODIUM CHLORIDE 0.9% IV 250 ML 78.57 MG IVPB (13:42)
[2024-04-15 14:00] VITALS: BP 118/67; PULSE 100; RESP 12; TEMP 36.3; O2SAT 100
[2024-04-16 15:42] LABS: ANA Cascade Screen NEGATIVE (NEGATIVE)
[2024-04-20 09:24] LABS: Myeloperoxidase Ab <1.0 AI
[2024-04-23 15:37] LABS: Block/Specimen ID NG; Clinical Indication NG; JAK2 V617F Mutation NOT DETECTED (NOT DETECTED); Specimen Source WHOLE BLOOD
== END 2024-04-15 17:41 | disposition home or self-care (01) | DRG 346 ==
LOC: ANHED 18:31 → ANH2MED 19:01
PROVIDERS: Nurse Practitioner Family; Nurse Practitioner Gerontology; Physician Assistant; Admitting Provider Internal Medicine; Emergency Provider Emergency Medicine; PCP Internal Medicine Infectious Disease; Visit Provider Internal Medicine
DX: M35.9 Systemic involvement of connective tissue, unspecified (principal); D63.8 Anemia in other chronic diseases classified elsewhere; D18.09 Hemangioma of other sites; N17.9 Acute kidney failure, unspecified; D72.829 Elevated white blood cell count, unspecified; R61 Generalized hyperhidrosis; M54.9 Dorsalgia, unspecified; G89.29 Other chronic pain; N30.00 Acute cystitis without hematuria; D69.3 Immune thrombocytopenic purpura; Z20.822 Contact with and (suspected) exposure to COVID-19; E87.6 Hypokalemia; Z86.73 Personal history of transient ischemic attack (TIA), and cerebral infarction without residual deficits; Z87.891 Personal history of nicotine dependence
CPT/HCPCS: 36415; 71046; 71260; 74177; 80048; 80053; 81001; 81270; 82274; 82607; 82728; 82746; 83540; 83550; 83605; 83735; 84443; 85025; 85610; 85730; 86036; 86038; 86140; 86225; 86235; 86364; 86430; 86480; 86705; 86803; 87040; 87086; 87340; 87385; 87637; 96361; 96365; 96366; 96372; 99285; A9270; G0378; G0379; J0696; J1650; J1756; J7030; J7050; Q9967